=== PATIENT | female | born 1970 | race Caucasian/White ===

== ENCOUNTER 2016-08-12 14:24 | Emergency (ER) | payer MEDICARE, BC ==
[~2016-08-12] VITALS: Ht 167.6 cm; Wt 100.0 kg
[2016-08-12 14:24] VITALS: Ht 167.6 cm; Wt 100.0 kg
--- OUTSIDE RECORDS SUMMARY | 2016-08-12 14:28 | XMS REPORT | Referral Summary ---
Author Organization Unknown Address Unknown Phone Unavailable Care Team Providers Care Military Professional Name Role Phone Kimo Contreras Primary Care Physician [phone] Encounter VC Date(s): 08/02/14 - 08/02/14 [facility] [address] [place] [address] Final: Migraine, unspecified, without mention of intractable migraine, without mention of status migrainosus Discharge Disposition: Left Against Medical Advice Attending Physician: Yo Ulloa MD Admitting Physician: Yo Ulloa MD Vital Signs Most recent to 1 oldest [Reference Range]: Temperature Oral 37.2 degC [35.8-37.3 degC] (08/02/14 12:55 PM) Peripheral Pulse 96 bpm Rate [60-100 bpm] (08/02/14 12:55 PM) Respiratory Rate 16 br/min [14-20 br/min] (08/02/14 12:55 PM) Blood Pressure 125/83 mmHg [90-140/60-90 mmHg] (08/02/14 12:55 PM) Most recent to 1 oldest [Reference Range]: SpO2 100 % (08/02/14 12:55 PM) Problem List Condition Effective Dates Status Health Status Informant Acute Active pain(Confirmed) Depression(Confirmed Active patient ) Hypothyroid(Confirme Active patient d) Ineffective coping Active (individual)(Confirm ed)1 Migraine(Confirmed) Active patient Psychosis(Confirmed) Active patient Schizoaffective Active disorder, bipolar type without good prognostic features(Confirmed) Tremors(Confirmed)2 Resolved patient 1Problem added automatically by system based on initiation of Ineffective Coping Plan of Care 2right arm r/t medication Allergies, Adverse Reactions, Alerts Substance Reaction Severity Status anabolic steroids1 Active Benadryl Anxiety Active Demerol HCl Anaphylaxis Active egg-containing compound2 unknown Severe Active meperidine "STOPPED BREATHHING" Active Anaphylaxis Milk Products3 Unknown Active 1patient states that she vomits when she takes steroids 2pt has PKU 3pku Medications [place] Thyroid 60 mg, Oral, BID, 0 Refill(s) Start Date: 11/23/13 Status: Ordered cholecalciferol 1000 intl units oral tablet 2 tabs, Oral, Daily, 0 Refill(s) Start Date: 07/20/14 Status: Ordered Depakote ER 500 mg oral tablet, extended release 3 tabs, Oral, Bedtime (once a day), 0 Refill(s) Start Date: 07/20/14 Status: Ordered Diflucan 200 mg, Oral, Daily, 0 Refill(s) Start Date: 07/14/14 Status: Ordered FLUoxetine 20 mg oral capsule 2 caps, Oral, Daily, # 60 caps, 0 Refill(s), Indication: depression/anxiety Start Date: 07/20/14 Status: Ordered Imitrex See Instructions, as needed for migraine headache, 100 mg at onset of headache. May repeat 1 time if needed., 0 Refill(s) Special Instructions: 100 mg at onset of headache. May repeat 1 time if needed. Start Date: 12/30/13 Status: Ordered Kuvan 100 mg oral tablet, dispersible 19 tabs, Oral, Daily, 0 Refill(s) Start Date: 07/14/14 Status: Ordered orphenadrine extended release See Instructions, Migraine Headache, 100 mg at onset of headache. May repeat 1 time if needed, 0 Refill(s) Special Instructions: 100 mg at onset of headache. May repeat 1 time if needed Start Date: 07/14/14 Status: Ordered traZODone 150 mg, Oral, Bedtime (once a day), 0 Refill(s) Start Date: 07/14/14 Status: Ordered ZyPREXA 5 mg oral tablet 1 tabs, Oral, Bedtime (once a day), # 30 tabs, 0 Refill(s), Indication: mood stabilizer Start Date: 07/20/14 Status: Ordered Results No data available for this section Immunizations No data available for this section Procedures Procedure Date Related Diagnosis Body Site Appendectomy Back care Carpal tunnel release Cholecystectomy Hysterectomy Thyroidectomy Tonsillectomy Social History Social History Type Response Smoking Status Never smoker Assessment and Plan No data available for this section
--- OUTSIDE RECORDS SUMMARY | 2016-08-12 14:28 | XMS REPORT ---
Author Author Ceasar Hobson [facility] Address [address] [place] [address] Care Team Providers Care Acetylene Burner Name Role Phone Ceasar Hobson Unavailable [phone] PROBLEMS Type Condition ICD9-CM Code QYS71-OD Code Onset Dates Condition Status SNOMED Code Problem PKU (phenylketonuria) E70.0 Active 7698200 Problem Phenylketonuria (PKU) 270.1 Active Assessment PKU (phenylketonuria) E70.0 Jun, Active 0560267 ALLERGIES Unknown Allergies SOCIAL HISTORY No smoking Hx information available PLAN OF CARE VITAL SIGNS MEDICATIONS Medication Instructions Dosage Frequency Start Date End Date Duration Status PhenylAde Essential Drink Mix - Orally daily - taken throughout the day 240 g daily - all flavors Jun, 1 month Active Low protein food n/a orally daily 800 mg PHE or 16 g protein per day 24h 1 month Active RESULTS No Results PROCEDURES No Known procedures IMMUNIZATIONS No Known Immunizations
--- OUTSIDE RECORDS SUMMARY | 2016-08-12 14:28 | XMS REPORT ---
Author Author GENERATED, SYSTEM Organization Unknown Address Unknown Phone Unavailable Care Team Providers Care Wash And Greaser Name Role Phone UNASSIGNED DOCTOR , DOCTOR PP [phone] Reason For Visit Reason for Visit from 07/15/2016 7:58 AM:* Pt Stated Reason for Adm : "severe depression, medication not working, crying, SI" Reason for Visit from 07/14/2016 11:39 AM:* Pt Stated Reason for Adm : "severe depression, medication not working, crying, SI" Chief Complaint MDD Social History Social History from 07/17/2016 10:53 AM:* Tobacco Use? : Never Smoker Social History from 07/15/2016 7:58 AM:* Tobacco Use? : Never Smoker Social History from 07/14/2016 11:39 AM:* Tobacco Use? : Never Smoker Functional Status Functional Status from 07/17/2016 9:54 AM:* LOC : Alert * Oriented To : Person,Place,Time,Event * Weight Bearing Status : Full * Assist Level : Independent * # Assists : Independent Functional Status from 07/16/2016 7:35 PM:* LOC : Alert * Oriented To : Person,Place,Time,Event * Weight Bearing Status : Full * Assist Level : Independent * # Assists : Independent Functional Status from 07/16/2016 7:14 AM:* LOC : Alert * Oriented To : Person,Place,Time,Event * Weight Bearing Status : Full * Assist Level : Independent * # Assists : Independent Functional Status from 07/15/2016 7:45 PM:* LOC : Alert * Oriented To : Person,Place,Time,Event * Weight Bearing Status : Full * Assist Level : Independent * # Assists : Independent Functional Status from 07/15/2016 10:26 AM:* LOC : Alert * Oriented To : Person,Place,Time,Event * Weight Bearing Status : Full * Assist Level : Independent * # Assists : Independent Functional Status from 07/14/2016 8:45 PM:* LOC : Alert * Oriented To : Person,Place,Time,Event * Weight Bearing Status : Full * Assist Level : Independent * # Assists : Independent Functional Status from 07/14/2016 11:39 AM:* LOC : Alert * Oriented To : Person,Place,Time,Event * Weight Bearing Status : Full * Assist Level : Independent * # Assists : Independent Vital Signs Hospital Vital Signs from 07/17/2016 4:03 AM:* Weight : 105.9/ kg * Height : 5/6 ft,in * Temperature : 97.1 F * Pulse : 109 * Respirations : 20 * BP : 121/95 Hospital Vital Signs from 07/16/2016 6:16 AM:* Height : 5/6 ft,in * Temperature : 98.4 F * Pulse : 115 * Respirations : 18 * BP : 115/86 Hospital Vital Signs from 07/15/2016 2:44 PM:* Height : 5/6 ft,in Hospital Vital Signs from 07/15/2016 6:07 AM:* Height : 5/6 ft,in * Temperature : 99.2 F * Pulse : 107 * Respirations : 107 * BP : 126/74 Hospital Vital Signs from 07/14/2016 10:40 PM:* Height : 5/6 ft,in * Temperature : 98 F * Pulse : 104 * Respirations : 18 * BP : 116/73 Hospital Vital Signs from 07/14/2016 7:43 PM:* Height : 5/6 ft,in * Temperature : 99.6 F * Pulse : 107 * Respirations : 18 * BP : 154/88 Hospital Vital Signs from 07/14/2016 11:39 AM:* Weight : 104.8/ kg * Height : 5/6 ft,in Hospital Vital Signs from 07/14/2016 10:28 AM:* Weight : 104.8/ kg * Height : 5/6 ft,in * Temperature : 98.5 F * Pulse : 107 * Respirations : 18 * BP : 142/94 Results Chemistry from 07/15/2016 6:40 AMGLUCOSE (FASTING) 103 MG/DL H (65-99 MG/DL) Problems Encounter Diagnosis * Mood Disorder Status:Active. Encounters Encounter Diagnosis * Mood Disorder Status:Active. Plan of Care Follow-up Appointments from 07/17/2016 10:53 AM:* #1 Office appointment: : Reva Urbano * #1 Date/Time : 07/17/2016 4:00 PM * Address # 1 : [phone] * #2 Office appointment: : Dr. Calvin Gonzales [facility] * #2 Date/Time : 08/29/2016 1:40 PM * Address # 2 : [phone] Procedures No relevant procedures performed. Immunizations No immunizations administered or ordered. Hospital Course Hospital Discharge Instructions How to care for yourself at home from 07/17/2016 10:53 AM:* Discharge Activity : Activity as tolerated * Discharge Diet : As before hospitalization * Call your doctor if: : Fever over 101 F or severe chills,Chest pain or other unexplained symptoms,Tingling or numbness develops,A sudden increase or decrease in weight,You have persistent or worsening symptoms Allergies, Adverse Reactions, Alerts * Imitrex causes anxiety. * steroids causes Nausea. * Benadryl causes restless legs. * Demerol causes Severe Shortness of Breath. * No Latex Allergy. * No IV Contrast Allergy. * No Known Food Allergies. Medication It is the responsibility of the patient or patient membership sales representative to confirm the list of medications with either the patient's personal care provider or the patient's follow-up care provider to ensure the patient has an appropriate list of medications to take at home. Discharge medications New medications* hydrOXYzine pamoate (Vistaril) 50 mg Capsule, Ordered By: CELESTINO ALLEN, PAC Directions: 1 capsule oral four times daily PRN ANXIETY * venlafaxine (Effexor XR) 75 mg capsule,extended release 24hr, Ordered By: CELESTINO ALLEN, PAC Directions: 1 capsule oral daily for depression Continued medications* oxyCODONE-acetaminophen (Percocet) 7.5 mg-325 mg Tablet, Ordered By: CELESTINO ALLEN, PAC Directions: 1 tablet oral every four hours PRN pain Changed medications* clonazePAM 0.5 mg Tablet, Ordered By: CELESTINO ALLEN, PAC Directions: 1 tablet oral daily at bedtime for insomnia * cholecalciferol (vitamin D3) 1,000 unit Tablet, Ordered By: CELESTINO ALLEN , PAC Directions: 1 tablet oral daily at bedtime for nutrition * gabapentin 400 mg Capsule, Ordered By: CELESTINO ALLEN, PAC Directions: 1 capsule oral daily at bedtime for pain * lurasidone (Latuda) 80 mg Tablet, Ordered By: DARLING RAMIREZ Directions: 1 tablet oral daily with dinner for mood stabilization * sapropterin 500 mg Powder in Packet, Ordered By: DARLING RAMIREZ Directions: 4 packet oral daily for PKU * thyroid (pork) ([place] Thyroid) 60 mg Tablet, Ordered By: DARLING RAMIREZ Directions: 1 tablet oral twice a day before breakfast and at bedtime for hypothyroidism Stopped medications* amitriptyline 25 mg Tablet Directions: 1 tablet oral daily at bedtime * DULoxetine 60 mg capsule,delayed release(DR/EC) Directions: 2 capsule oral daily * hydrOXYzine HCl 25 mg Tablet Directions: 1 tablet oral three times a day PRN anxiety
--- OUTSIDE RECORDS SUMMARY | 2016-08-12 14:29 | XMS REPORT | Referral Summary ---
Author Author [facility] Organization [facility] Address Unknown Phone Unavailable Care Team Providers Care Historical Guide Name Role Phone ContrerasKimo Primary Care Physician [phone] Encounter VC Date(s): 03/10/15 - 03/10/15 [facility] [address] [place] [address]- Discharge Diagnosis: Bilateral sensorineural hearing loss Discharge Disposition: 01-Home or Self Care Attending Physician: Julio C Samuels MD Admitting Physician: Julio C Samuels MD Vital Signs No data available for this section Problem List Condition Effective Dates Status Health Status Informant Acute Active pain(Confirmed) [place] III diagnosis: Active migraines, PKU(Confirmed) [place] IV diagnosis: Active problems with chronic illness, primary support(Confirmed) [place] V diagnosis: Active GAF 20(Confirmed) [place] II diagnosis Active deferred(Confirmed) Depression(Confirmed Active patient ) Hypothyroid(Confirme Active patient d) Ineffective coping Resolved (individual)(Confirm ed)1 Migraine(Confirmed) Active patient PKU Active patient (phenylketonuria)(Co nfirmed) Psychosis(Confirmed) Active patient [place] I: Active Schizoaffective disorder, bipolar type without good prognostic features(Confirmed) Tremors(Confirmed)2 Resolved patient 1Problem added automatically by system based on initiation of Ineffective Coping Plan of Care 2right arm r/t medication Allergies, Adverse Reactions, Alerts Substance Reaction Severity Status anabolic steroids1 Vomiting Severe Active Benadryl Anxiety Severe Active Demerol HCl Anaphylaxis Severe Active egg-containing compound2 unknown Severe Active meperidine "STOPPED BREATHHING" Severe Active Anaphylaxis Milk Products3 Unknown Active 1patient states that she vomits when she takes steroids 2pt has PKU 3pku Medications [place] Thyroid 60 mg, Oral, BID, 0 Refill(s) Start Date: 11/23/13 Status: Ordered Bystolic 5 mg, Oral, Daily, 0 Refill(s) Start Date: 10/17/14 Status: Ordered cholecalciferol 1000 intl units oral tablet 1,000 Intl_Units 1 tabs, Oral, Bedtime (once a day), 0 Refill(s) Start Date: 07/20/14 Status: Ordered FLUoxetine 40 mg, Oral, Daily, 0 Refill(s) Start Date: 10/18/14 Status: Ordered hydrochlorothiazide 25 mg, Oral, Daily, Swelling, 0 Refill(s) Start Date: 12/21/14 Status: Ordered HYDROcodone-acetaminophen 7.5 mg-325 mg oral tablet 1 tabs, Oral, q4hr, as needed for pain, q4-6hr, 0 Refill(s) Start Date: 10/17/14 Status: Ordered Kuvan 100 mg oral tablet, dispersible 1,900 mg 19 tabs, Oral, Daily, 0 Refill(s) Start Date: 12/21/14 Status: Ordered Migranal 4 mg/mL nasal spray 1 sprays, Nasal, q15min, as needed for headache, may repeat once in 15 minutes in each nostril, # 1 mL, 0 Refill(s) Start Date: 10/17/14 Status: Ordered multivitamin 1 tabs, Oral, Daily, 0 Refill(s) Start Date: 12/21/14 Status: Ordered orphenadrine 30 mg/mL injectable solution 60 mg, IntraMuscular, 3x/Wk, Migraine Headache, 0 Refill(s) Start Date: 10/18/14 Status: Ordered promethazine 25 mg oral tablet 25 mg 1 tabs, Oral, Daily, Nausea or Vomiting, 0 Refill(s) Start Date: 10/21/14 Status: Ordered QUEtiapine 25 mg oral tablet 25 mg 1 tabs, Oral, BID, # 60 tabs, 0 Refill(s), Indication: mood Start Date: 12/25/14 Status: Ordered SEROquel 100 mg oral tablet 100 mg 1 tabs, Oral, Bedtime (once a day), # 30 tabs, 0 Refill(s), Indication: mood Start Date: 12/25/14 Status: Ordered topiramate 50 mg oral tablet 50 mg 1 tabs, Oral, BID, 0 Refill(s) Start Date: 12/21/14 Status: Ordered traZODone 100 mg oral tablet 100 mg 1 tabs, Oral, Bedtime (once a day), 0 Refill(s) Start Date: 12/21/14 Status: Ordered traZODone 50 mg oral tablet 100 mg 2 tabs, Oral, Bedtime (once a day), Insomnia, # 60 tabs, 0 Refill(s), Indication: sleep Start Date: 12/25/14 Status: Ordered trihexyphenidyl 2 mg oral tablet 2 mg 1 tabs, Oral, BID, 0 Refill(s) Start Date: 12/21/14 Status: Ordered Results No data available for this section Immunizations No data available for this section Procedures Procedure Date Related Diagnosis Body Site Electroconvulsive Therapy ECT1 11/02/14 Examination Under Anesthesia2 11/02/14 Electroconvulsive Therapy ECT3 10/31/14 Examination Under Anesthesia4 10/31/14 Electroconvulsive Therapy ECT5 10/28/14 Examination Under Anesthesia6 10/28/14 Electroconvulsive Therapy ECT7 10/26/14 Examination Under Anesthesia8 10/26/14 Electroconvulsive Therapy ECT9 10/24/14 Electroconvulsive Therapy ECT10 10/21/14 Examination Under [id number] 10/21/14 Electroconvulsive Therapy ECT12 10/19/14 Examination Under [id number] 10/19/14 Appendectomy Back care Carpal tunnel release Cholecystectomy Hysterectomy Thyroidectomy Tonsillectomy 1auto-populated from documented surgical case 2auto-populated from documented surgical case 3auto-populated from documented surgical case 4auto-populated from documented surgical case 5auto-populated from documented surgical case 6auto-populated from documented surgical case 7auto-populated from documented surgical case 8auto-populated from documented surgical case 9auto-populated from documented surgical case 10auto-populated from documented surgical case 11auto-populated from documented surgical case 12auto-populated from documented surgical case 13auto-populated from documented surgical case Social History Social History Type Response Smoking Status Never smoker Assessment and Plan No data available for this section
--- OUTSIDE RECORDS SUMMARY | 2016-08-12 14:29 | XMS REPORT ---
Author Author Ceasar Hobson [facility] eClinical[employer] Address Unknown Phone Unavailable Care Team Providers Care Professor Of Philosophy Name Role Phone Ceasar Hobson Unavailable Allergies No Known Allergies Problems Problem Type Condition Code Onset Dates Condition Status Problem Phenylketonuria (PKU) 270.1 Active Problem PKU (phenylketonuria) E70.0 Active Medications No Known Medications Results No Known Results Summary Purpose eClinicalWorks Submission
--- OUTSIDE RECORDS SUMMARY | 2016-08-12 14:29 | XMS REPORT ---
Author Author [facility] Unknown Address Unknown Phone Unavailable Allergies, Adverse Reactions, Alerts * Meperidine causes Severe Anaphylaxis. * Latex Allergy has not been assessed. * IV Contrast Allergy has not been assessed. * No Known Food Allergies. Problems * Anxiety* Status:Inactive. * Depression* Status:Active. * Difficulty Sleeping* Status:Inactive. * Hallucinations* Status:Active. Procedures No relevant procedures performed. Medication It is the responsibility of the patient or patient public relations representative to confirm the list of medications with either the patient's personal care provider or the patient's follow-up care provider to ensure the patient has an appropriate list of medications to take at home. Discharge medications* citalopram (CeleXA) 40 mg Tablet, Ordered By: Audra Owens Directions: 1 tablet oral daily * topiramate (ToPAMax) 100 mg Tablet, Ordered By: Audra Owens Directions: 1 tablet oral twice a day * Discharge Instruction: 1 Regular Diet 2 Activity up as tolerated 3 Follow up with primary care physcian 1 week after discharge from [facility]. Stopped medications* lithium carbonate 150 mg Capsule Directions: 1 capsule oral twice a day * thyroid (pork) ([place] Thyroid) 60 mg Tablet Directions: 1 tablet oral twice a day * ziprasidone HCl (Geodon) 40 mg Capsule Directions: 1 capsule oral daily with dinner Additional Instructions: TAKE WITH FULL MEAL OR AT LEAST 500 CALORIES * traZODone 100 mg Tablet Directions: 1 tablet oral daily at bedtime Results LAB--CHEMISTRY from 02/03/2013 3:39 AMFree T4 0.7 ng/dL (0.6-1.1 ng/dL) TSH (with reflex Free T4) 0.07 uIU/mL L (0.35-5.50 uIU/mL) Sodium 140 mEq/L (136-144 mEq/L) Potassium 3.8 mEq/L (3.6-5.1 mEq/L) Glucose 91 mg/dL (70-100 mg/dL) eGFR >60 (>60- ) Creatinine 0.62 mg/dL (0.44-1.03 mg/dL) CO2 22 mEq/L (22-32 mEq/L) Chloride 111 mEq/L H (99-109 mEq/L) Calcium 8.1 mg/dL L (8.6-10.0 mg/dL) BUN 5 mg/dL (4-20 mg/dL) Anion Gap 7 (3-20 ) LAB--HEMATOLOGY from 02/03/2013 3:39 AMNeutrophils 55 % (51-75 %) Monocytes 9 % (4-11 %) Lymphocytes 34 % (20-46 %) Immature Granulocytes 0.1 % (0.0-1.0 %) Eosinophils 1 % (0-4 %) Basophils 0 % (0-2 %) WBC 10.0 K/uL (4.8-10.8 K/uL) RDW 12.4 % (11.5-14.5 %) RBC 4.04 M/uL (4.00-5.20 M/uL) Platelet Count 284 K/uL (150-400 K/uL) MPV 10.6 fL (9.4-12.4 fL) MCV 93.8 fL (82.0-99.0 fL) MCHC 33.2 g/dL (32.0-36.0 g/dL) MCH 31.2 pg (27.0-32.0 pg) HGB 12.6 g/dl (12.0-16.0 g/dl) HCT 37.9 % (37.0-47.0 %) Absolute Neutrophils 5.51 THOUS (1.90-7.00 THOUS) Absolute Monocytes 0.94 THOUS (0.30-1.00 THOUS) Absolute Lymphocytes 3.38 THOUS H (0.80-3.30 THOUS) Absolute Eosinophils 0.11 THOUS (0.00-0.50 THOUS) Absolute Basophils 0.04 THOUS (0.00-0.20 THOUS)
--- OUTSIDE RECORDS SUMMARY | 2016-08-12 14:29 | XMS REPORT | Referral Summary ---
Author Author [facility] Organization [facility] Address Unknown Phone Unavailable Care Team Providers Care Guest Relations Coordinator Name Role Phone Kimo Contreras Primary Care Physician [phone] Encounter VC Date(s): 02/04/16 - 02/04/16 [facility] [address] [place] [address] [phone] Discharge Diagnosis: Migraine Discharge Disposition: 01-Home or Self Care Attending Physician: Brian Welch MD Admitting Physician: Brian Welch MD Vital Signs Most recent to 1 oldest [Reference Range]: Temperature Oral 36.5 degC [35.8-37.3 degC] (02/04/16 3:36 PM) Peripheral Pulse 92 bpm Rate [60-100 bpm] (02/04/16 3:36 PM) Heart Rate Monitored 89 bpm [60-100 bpm] (02/04/16 8:30 PM) Respiratory Rate 14 br/min [14-20 br/min] (02/04/16 8:30 PM) Blood Pressure 117/73 mmHg [90-140/60-90 mmHg] (02/04/16 8:30 PM) Mean Arterial 88 mmHg Pressure, Cuff (02/04/16 8:30 PM) SpO2 97 % (02/04/16 8:30 PM) Problem List Condition Effective Dates Status Health Status Informant Acute Active pain(Confirmed) [place] III diagnosis: Active migraines, PKU(Confirmed) [place] IV diagnosis: Active problems with chronic illness, primary support(Confirmed) [place] V diagnosis: Active GAF 20(Confirmed) [place] II diagnosis Active deferred(Confirmed) Depression(Confirmed Active patient ) Hypothyroid(Confirme Active patient d) Ineffective coping Resolved (individual)(Confirm ed)1 Migraine(Confirmed) Active patient PKU Active patient (phenylketonuria)(Co nfirmed) Psychosis(Confirmed) Active patient [place] I: Active Schizoaffective disorder, bipolar type without [...] takes steroids 2pt has PKU 3pku Medications [place] Thyroid 60 mg, Oral, BID, 0 Refill(s) [...] 10/24/14 Electroconvulsive Therapy ECT10 10/21/14 Examination Under [id number] 10/21/14 Electroconvulsive Therapy ECT12 10/19/14 Examination Under [id number] 10/19/14 Appendectomy Back care Carpal tunnel release [...]
--- OUTSIDE RECORDS SUMMARY | 2016-08-12 14:29 | XMS REPORT | Referral Summary ---
Author Organization Unknown Address Unknown Phone Unavailable Care Team Providers Care Hand Folder Name Role Phone Kimo Contreras Primary Care Physician [phone] Encounter [facility] Date(s): 06/06/14 - 06/06/14 [facility] [address] [place] [address] Discharge Diagnosis: Chronic pain Discharge Diagnosis: Chronic pain Discharge Diagnosis: Headache Discharge Diagnosis: Migraine headache Discharge Disposition: Home or Self Care Attending Physician: Haroldo Oliveros DO Admitting Physician: Haroldo Oliveros DO Vital Signs Most recent to 1 oldest [Reference Range]: Temperature Oral 36.7 degC [35.8-37.3 degC] (06/06/14 6:06 PM) Peripheral Pulse 85 bpm Rate [60-100 bpm] (06/06/14 9:22 PM) Respiratory Rate 20 br/min [14-20 br/min] (06/06/14 9:22 PM) Blood Pressure 130/65 mmHg [90-140/60-90 mmHg] (06/06/14 9:22 PM) Mean Arterial 77 mmHg Pressure, Cuff (06/06/14 9:22 PM) Most recent to 1 oldest [Reference Range]: SpO2 97 % (06/06/14 9:22 PM) Problem List Condition Effective Dates Status Health Status Informant Depression(Confirmed Active patient ) Hypothyroid(Confirme Active patient d) Migraine(Confirmed) Active patient Psychosis(Confirmed) Active patient Tremors(Confirmed)1 Resolved patient 1right arm r/t medication Allergies, Adverse Reactions, Alerts Substance Reaction Severity Status anabolic steroids1 Active Benadryl Anxiety Active Demerol HCl Anaphylaxis Active meperidine "STOPPED BREATHHING" Active Anaphylaxis 1patient states that she vomits when she takes steroids Medications [place] Thyroid 60 mg, Oral, BID, 0 Refill(s) Start Date: 11/23/13 Status: Ordered [place] Thyroid 60 mg oral tablet 1 tabs, Oral, BID, 0 Refill(s) Start Date: 12/02/13 Status: Ordered CeleXA 40 mg oral tablet 1 tabs, Oral, Daily, 0 Refill(s) Start Date: 12/02/13 Status: Ordered Depakote Oral, TID, 0 Refill(s) Start Date: 06/06/14 Status: Ordered Imitrex Daily, 0 Refill(s) Start Date: 12/30/13 Status: Ordered Kuvan mg/kg, Oral, Daily, 0 Refill(s) Start Date: 06/06/14 Status: Ordered Latuda Oral, Daily, 0 Refill(s) Start Date: 06/06/14 Status: Ordered propranolol 0 Refill(s) Start Date: 12/22/13 Status: Ordered Topamax Oral, BID, 0 Refill(s) Start Date: 12/22/13 Status: Ordered traZODone 50 mg oral tablet 1 tabs, Oral, Bedtime (once a day), Insomnia, 0 Refill(s) Start Date: 12/02/13 Status: Ordered Results No data available for this section Immunizations No data available for this section Procedures Procedure Date Related Diagnosis Body Site Appendectomy Back care Carpal tunnel release Cholecystectomy Hysterectomy Thyroidectomy Tonsillectomy Social History Social History Type Response Smoking Status Never smoker Assessment and Plan No data available for this section
--- OUTSIDE RECORDS SUMMARY | 2016-08-12 14:30 | XMS REPORT | Referral Summary ---
Author Author [facility] Organization [facility] Address Unknown Phone Unavailable Care Team Providers Care Filter Press Pumper Name Role Phone ContrerasKimo Primary Care Physician [phone] Encounter VC Date(s): 03/10/15 - 03/10/15 [facility] [address] [place] [address]- Discharge Diagnosis: Bilateral sensorineural hearing loss Discharge Disposition: 01-Home or Self Care Attending Physician: Julio C Samuels MD Admitting Physician: Julio C Samuels MD Vital Signs No data available for this section Problem List Condition Effective Dates Status Health Status Informant Acute Active pain(Confirmed) Hoffman III diagnosis: Active migraines, PKU(Confirmed) Hoffman IV diagnosis: Active problems with chronic illness, primary support(Confirmed) Hoffman V diagnosis: Active GAF 20(Confirmed) Hoffman II diagnosis Active deferred(Confirmed) Depression(Confirmed Active patient ) Hypothyroid(Confirme Active patient d) Ineffective coping Resolved (individual)(Confirm ed)1 Migraine(Confirmed) Active patient PKU Active patient (phenylketonuria)(Co nfirmed) Psychosis(Confirmed) Active patient Hoffman I: Active Schizoaffective disorder, bipolar type without [...] takes steroids 2pt has PKU 3pku Medications [place] Thyroid 60 mg, Oral, BID, 0 Refill(s) [...] 10/24/14 Electroconvulsive Therapy ECT10 10/21/14 Examination Under [id number] 10/21/14 Electroconvulsive Therapy ECT12 10/19/14 Examination Under [id number] 10/19/14 Appendectomy Back care Carpal tunnel release [...]
--- OUTSIDE RECORDS SUMMARY | 2016-08-12 14:30 | XMS REPORT | Referral Summary ---
Author Organization Unknown Address Unknown Phone Unavailable Care Team Providers Care Director Of Healthcare Systems Name Role Phone Kimo Contreras Primary Care Physician [phone] Encounter [facility] [id number] Date(s): 09/07/14 - 09/08/14 [facility] [address] [place] [address] [phone] Discharge Diagnosis: Headache Final: HEADACHE Discharge Disposition: Home or Self Care Attending Physician: Isauro Wheatley JR, MD Admitting Physician: Isauro Wheatley JR, MD Vital Signs Most recent to 1 oldest [Reference Range]: Temperature Oral 36.8 degC [35.8-37.3 degC] (09/07/14 8:23 PM) Peripheral Pulse 72 bpm Rate [60-100 bpm] (09/08/14 3:05 AM) Heart Rate Monitored 72 bpm [60-100 bpm] (09/08/14 3:00 AM) Respiratory Rate 20 br/min [14-20 br/min] (09/08/14 3:05 AM) Blood Pressure 123/81 mmHg [90-140/60-90 mmHg] (09/08/14 3:05 AM) Mean Arterial 91 mmHg Pressure, Cuff (09/08/14 3:00 AM) Most recent to 1 oldest [Reference Range]: SpO2 99 % (09/08/14 3:05 AM) Problem List Condition Effective Dates Status Health [...] takes steroids 2pt has PKU 3pku Medications [place] Thyroid 60 mg, Oral, BID, 0 Refill(s) [...] stabilizer Start Date: 07/20/14 Status: Ordered Results Chemistry Most recent to 1 oldest [Reference Range]: U Beta hCG Ql Neg (09/08/14 12:31 AM) Immunizations No data available for this section Procedures Procedure Date Related Diagnosis Body Site Appendectomy Back care Carpal tunnel release Cholecystectomy Hysterectomy Thyroidectomy Tonsillectomy Social History Social History Type Response Smoking Status Never smoker Assessment and Plan No data available for this section
--- OUTSIDE RECORDS SUMMARY | 2016-08-12 14:30 | XMS REPORT | Continuity of Care Document ---
Author Author [facility] Organization [facility] Address Unknown Phone Unavailable Allergies Active Description Code Type Severity Reaction Onset Reported/Identified Relationship to Patient Clinical Status Yes BENADRYL [id number] Drug Allergy N/A N/A Yes DEMEROL [id number] Drug Allergy N/A N/A Yes SHELLFISH Drug Allergy N/A N/A Yes STEROIDS Drug Allergy N/A N/A Yes Meperidine Drug Allergy Severe Anaphylaxis 09/27/2010 Yes EGGS EGGS Drug Allergy Unknown HAS PKU 07/12/2012 Yes EGGS EGGS Drug Allergy Unknown HAS PKU 07/12/2012 Yes No Allergy Information Drug Allergy N/A N/A 01/04/2013 Yes No Known Food Allergies Food Allergy N/A N/A 04/26/2013 Yes STEROIDS STEROIDS Drug Allergy Mild PER PT/ NAUSEA 01/04/2014 Yes STEROIDS STEROIDS Drug Allergy Mild PER PT/ NAUSEA 01/04/2014 Yes Steroidal Neuromuscular Blockers Steroidal Neuromuscular Blockers Drug Allergy Unknown vomiting 03/01/2015 Yes Steroidal Neuromuscular Blockers Steroidal Neuromuscular Blockers Drug Allergy Unknown vomiting 04/23/2015 Yes sumatriptan sumatriptan Drug Allergy Moderate pannic attach 06/28/2016 Yes diphenhydramine diphenhydramine Drug Allergy Unknown PER PT / RESTLESS 06/28/2016 Yes Egg Derived Egg Derived Drug Allergy Unknown PKU 06/28/2016 Yes meperidine HCl meperidine HCl Drug Allergy Unknown STOPS BREATHING AND DRY HEAVES 06/28/2016 Yes Neuromuscular Blockers, Steroidal Neuromuscular Blockers, Steroidal Drug Allergy Unknown vomiting 06/28/2016 Yes shellfish derived shellfish derived Drug Allergy Unknown HAS PKU AND CAN NOT EAT IT 06/28/2016 Yes sumatriptan sumatriptan Drug Allergy Moderate pannic attach 06/30/2016 Yes diphenhydramine diphenhydramine Drug Allergy Unknown PER PT / RESTLESS 06/30/2016 Yes Egg Derived Egg Derived Drug Allergy Unknown PKU 06/30/2016 Yes meperidine HCl meperidine HCl Drug Allergy Unknown STOPS BREATHING AND DRY HEAVES 06/30/2016 Yes Neuromuscular Blockers, Steroidal Neuromuscular Blockers, Steroidal Drug Allergy Unknown vomiting 06/30/2016 Yes shellfish derived shellfish derived Drug Allergy Unknown HAS PKU AND CAN NOT EAT IT 06/30/2016 Medications Problems Date Dx Coded Attending Type Code Diagnosis Diagnosed By 02/02/2013 Emra Valentine DO Final 244.9 HYPOTHYROIDISM NOS 02/02/2013 Erma Valentine DO Final 295.70 SCHIZOAFF DISORDER NOS 02/02/2013 Erma Valentine DO Final 296.34 RECURRENT MDD-SEV PSYCH 02/02/2013 Erma Valentine DO Final 309.81 POSTTRAUMATIC STRESS DIS 02/02/2013 Erma Valentine DO Final 975.2 POIS-SKEL MUSCLE RELAX 02/02/2013 Erma Valentine DO External E849.0 HOME ACCIDENTS 02/02/2013 Erma Valentine DO External E950.4 SUICIDE-DRUG/MED NEC 02/02/2013 Erma Valentine DO Final V62.84 SUICIDE IDEATION 05/24/2013 Yo Ulloa MD Admitting 346.90 MIGRAINE NOS W/O SM 05/24/2013 Yo Ulloa MD Final 784.0 HEADACHE 09/03/2013 Rosalio Castro MD Final 244.9 HYPOTHYROIDISM NOS 09/03/2013 Rosalio Castro MD Final 346.90 MIGRAINE NOS W/O SM 09/03/2013 Rosalio Castro MD Admitting 784.0 HEADACHE 09/11/2015 F F29 Unspecified psychosis not due to a substance or known physiological condition Severo Valdivia 09/12/2015 F F29 Unspecified psychosis not due to a substance or known physiological condition Jake Cedeño 12/21/2015 F F32.9 Major depressive disorder, single episode, unspecified Petit, Benjamen 12/21/2015 F F60.3 Borderline personality disorder 12/21/2015 F F60.3 Borderline personality disorder 12/22/2015 F F32.9 Major depressive disorder, single episode, unspecified 12/22/2015 F F60.3 Borderline personality disorder Petit, Benjamen 12/22/2015 F F60.3 Borderline personality disorder Josephine Hernandez 12/22/2015 F F32.9 Major depressive disorder, single episode, unspecified Siedler, Josephine Kasia 12/22/2015 F F60.3 Borderline personality disorder Siedler, Josephine Kasia 12/22/2015 F F32.9 Major depressive disorder, single episode, unspecified Siedler, Josephine Kasia 12/22/2015 F F60.3 Borderline personality disorder Petit, Benjamen 12/22/2015 F F60.3 Borderline personality disorder 12/22/2015 F F32.9 Major depressive disorder, single episode, unspecified Almquist-Wiseman, Kylie Magnolia 12/22/2015 F F60.3 Borderline personality disorder Almquist- Wiseman, Kylie Magnolia 12/22/2015 F F32.9 Major depressive disorder, single episode, unspecified 12/22/2015 F F60.3 Borderline personality disorder Petit, Benjamen 12/24/2015 F F32.9 Major depressive disorder, single episode, unspecified 12/24/2015 F F60.3 Borderline personality disorder Damaso, Benjamen 07/27/2016 LIBBY STATON E039 Hypothyroidism, unspecified 07/27/2016 LIBBY STATON 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, recurrent severe w/o psych features 07/27/2016 LIBBY STATON C52757 Suicidal ideations 07/27/2016 LIBBY STATON Z811 Family history of alcohol abuse and dependence 07/27/2016 LIBBY STATON Z818 Family history of other mental and behavioral disorders 07/27/2016 LIBBY STATON Z885 Allergy status to narcotic agent status Procedures Code Description Performed By Performed On H2011 Severo Valdivia W [id number] Petit, Benjamen 12/21/2015 [id number] Petit, Benjamen 12/21/2015 H2011 Haroldo Daly H2011 Haroldo Daly H2011 Siedler, Josephine Kasia 12/22/2015 H2011 Siedler, Josephine Kasia 12/22/2015 H2011 Almquist-Wiseman, Kylie Magnolia 12/22/2015 H2011 Almquist-Wiseman, Kylie Magnolia 12/22/2015 Results Test Result Range TOTAL PROTEIN - 01/05/15 00:00 TOTAL PROTEIN 6.1 gm/dL 6.4-8.2 Microbiology ALBUMIN - 01/05/15 00:00 ALBUMIN 3.6 gm/dL 3.4-5.0 PREALBUMIN - 01/05/15 00:00 PREALBUMIN 28 mg/dL 20-40 AMINO ACIDS PROF QN BLD - 01/05/15 00:00 AMINO ACID QUANT. RESULT Note Microbiology UR DRUGS OF ABUSE SCREEN - 04/23/15 13:38 UR AMPHETAMINES SCREEN NEG (<1000 ng/mL) NEGATIVE UR BARBITURATE SCREEN NEG (< 200 ng/mL) NEGATIVE DRUGS OF ABUSE SCREEN COMMENT UR OPIATES SCREEN NEG (< 300 ng/mL) NEGATIVE UR PHENCYCLIDINE (PCP) SCREEN NEG (< 25 ng/mL) NEGATIVE UR CANNABINOIDS (THC) SCREEN NEG (< 50 ng/mL) NEGATIVE UR COCAINE METABOLITE SCREEN NEG (< 300 ng/mL) NEGATIVE UR METHADONE SCREEN NEG (< 300 ng/mL) NEGATIVE UR BENZODIAZEPINE SCREEN NEG (< 200 ng/mL) NEGATIVE URINALYSIS, ROUTINE - 04/23/15 13:43 UA LEUKOCYTE ESTERASE DIPSTICK NEGATIVE NEGATIVE UA NITRITE DIPSTICK NEGATIVE NEGATIVE UA PROTEIN DIPSTICK NEGATIVE NEGATIVE UA GLUCOSE DIPSTICK NEGATIVE NEGATIVE UA KETONE DIPSTICK NEGATIVE NEGATIVE UA UROBILINOGEN DIPSTICK NORMAL NORMAL UA BILIRUBIN DIPSTICK NEGATIVE NEGATIVE UA BLOOD DIPSTICK NEGATIVE NEGATIVE UA SPECIFIC GRAVITY 1.010 1.015-1.025 UR PH 6.5 5.0-7.0 CBC W/DIFF - 04/23/15 13:44 BASOPHIL # 0.1 k/cumm 0.0-0.2 BASOPHIL % 1 % 0-1 EOSINOPHIL # 0.1 k/cumm 0.1-0.5 EOSINOPHIL % 1 % 2-4 GRANULOCYTE # 7.2 k/cumm 2.0-9.0 GRANULOCYTE % 70 % 50-75 LYMPHOCYTE # 2.2 k/cumm 1.0-4.0 LYMPHOCYTE % 21 % 20-30 MEAN CELL HGB 30.5 pg 27.0-33.0 MEAN CELL HGB CONCENTRATION 34.5 g/dL 32.0-37.0 MEAN CELL VOLUME 88.4 fl 80.0-100.0 MONOCYTE # 0.8 k/cumm 0.1-1.0 MONOCYTE % 8 % 4-6 RED BLOOD CELL 4.66 m/cumm 4.00-6.00 RED CELL DISTRIBUTION WIDTH 14.3 % 11.0- 15.6 WHITE BLOOD CELL 10.3 k/cumm 5.0-10.0 HEMOGLOBIN 14.2 gm/dL 12.0-16.0 HEMATOCRIT 41.2 % 37.0-47.0 PLATELET COUNT 368 k/cumm 150-400 METABOLIC PANEL, COMPREHN - 04/23/15 13:44 POTASSIUM 3.6 mmol/L 3.5-5.3 EST GFR (MDRD) > 60 mL/min > 59 ANION GAP 10 mmol/L 5-15 GLUCOSE 106 mg/dL 70-99 CALCIUM 9.1 mg/dL 8.5-10.1 BLOOD UREA NITROGEN 9 mg/dL 7-20 CREATININE 0.9 mg/dL 0.6-1.0 SODIUM 140 mmol/L 135-148 CHLORIDE 104 mmol/L 98-110 AST/SGOT 15 Units/L 10-37 ALT/SGPT 29 Units/L < 66 CARBON DIOXIDE 26 mmol/L 21-32 TOTAL PROTEIN 7.4 gm/dL 6.4-8.2 ALBUMIN 3.9 gm/dL 3.4-5.0 BILI TOTAL 0.6 mg/dL 0.0-1.0 ALKALINE PHOSPHATASE TOTAL 96 IU/L 45- 117 ACETAMINOPHEN (TYLENOL) - 04/23/15 13:44 ACETAMINOPHEN (TYLENOL) < 2 mcg/mL 10-30 SALICYLATE (ASPIRIN) - 04/23/15 13:44 SALICYLATE < 2.8 mg/dL 2.8-29.0 ALCOHOL (ETHANOL) SERUM - 04/23/15 13:44 ALCOHOL (ETHANOL) SERUM < 3 mg/dL < 10 UR TEST - 04/23/15 13:45 UR TEST NEGATIVE NEGATIVE URINALYSIS, ROUTINE - 09/11/15 22:25 UA LEUKOCYTE ESTERASE DIPSTICK NEGATIVE NEGATIVE UA NITRITE DIPSTICK NEGATIVE NEGATIVE UA PROTEIN DIPSTICK NEGATIVE NEGATIVE UA GLUCOSE DIPSTICK NEGATIVE NEGATIVE UA KETONE DIPSTICK TRACE NEGATIVE UA UROBILINOGEN DIPSTICK NORMAL NORMAL UA BILIRUBIN DIPSTICK NEGATIVE NEGATIVE UA BLOOD DIPSTICK NEGATIVE NEGATIVE UA SPECIFIC GRAVITY 1.010 1.015-1.025 UR PH 8.0 5.0-7.0 UR TEST - 09/11/15 22:25 UR TEST NEGATIVE NEGATIVE UR DRUGS OF ABUSE SCREEN - 04/25/16 22:25 UR AMPHETAMINES SCREEN NEG (<1000 ng/mL) NEGATIVE UR BARBITURATE SCREEN NEG (< 200 ng/mL) NEGATIVE DRUGS OF ABUSE SCREEN COMMENT UR OPIATES SCREEN NEG (< 300 ng/mL) NEGATIVE UR PHENCYCLIDINE (PCP) SCREEN NEG (< 25 ng/mL) NEGATIVE UR CANNABINOIDS (THC) SCREEN NEG (< 50 ng/mL) NEGATIVE UR COCAINE METABOLITE SCREEN NEG (< 300 ng/mL) NEGATIVE UR METHADONE SCREEN NEG (< 300 ng/mL) NEGATIVE UR BENZODIAZEPINE SCREEN NEG (< 200 ng/mL) NEGATIVE CBC W/DIFF - 09/11/15 22:35 EOSINOPHIL # 0.2 k/cumm 0.1-0.5 EOSINOPHIL % 1 % 2-4 GRANULOCYTE # 8.0 k/cumm 2.0-9.0 GRANULOCYTE % 61 % 50-75 LYMPHOCYTE # 3.9 k/cumm 1.0-4.0 LYMPHOCYTE % 30 % 20-30 MEAN CELL HGB 31.5 pg 27.0-33.0 MEAN CELL HGB CONCENTRATION 34.4 g/dL 32.0-37.0 MEAN CELL VOLUME 91.4 fl 80.0-100.0 MONOCYTE # 1.0 k/cumm 0.1-1.0 MONOCYTE % 7 % 4-6 RED BLOOD CELL 4.29 m/cumm 4.00-6.00 RED CELL DISTRIBUTION WIDTH 13.0 % 11.0- 15.6 WHITE BLOOD CELL 13.0 k/cumm 5.0-10.0 HEMOGLOBIN 13.5 gm/dL 12.0-16.0 HEMATOCRIT 39.2 % 37.0-47.0 PLATELET COUNT 322 k/cumm 150-450 METABOLIC PANEL, COMPREHN - 09/11/15 22:35 POTASSIUM 3.8 mmol/L 3.5-5.3 EST GFR (MDRD) > 60 mL/min > 59 ANION GAP 9 mmol/L 5-15 GLUCOSE 100 mg/dL 70-99 CALCIUM 8.9 mg/dL 8.5-10.1 BLOOD UREA NITROGEN 8 mg/dL 7-20 CREATININE 0.8 mg/dL 0.6-1.0 SODIUM 139 mmol/L 135-148 CHLORIDE 104 mmol/L 98-110 AST/SGOT 16 Units/L 10-37 ALT/SGPT 33 Units/L < 66 CARBON DIOXIDE 26 mmol/L 21-32 TOTAL PROTEIN 7.0 gm/dL 6.4-8.2 ALBUMIN 3.8 gm/dL 3.4-5.0 BILI TOTAL 0.5 mg/dL 0.0-1.0 ALKALINE PHOSPHATASE TOTAL 78 IU/L 45- 117 ACETAMINOPHEN (TYLENOL) - 09/11/15 22:35 ACETAMINOPHEN (TYLENOL) < 2 mcg/mL 10-30 SALICYLATE (ASPIRIN) - 09/11/15 22:35 SALICYLATE < 2.8 mg/dL 2.8-29.0 ALCOHOL (ETHANOL) SERUM - 09/11/15 22:35 ALCOHOL (ETHANOL) SERUM < 10 mg/dL < 10 URINALYSIS, ROUTINE - 04/08/16 13:40 UA LEUKOCYTE ESTERASE DIPSTICK NEGATIVE NEGATIVE UA NITRITE DIPSTICK NEGATIVE NEGATIVE UA PROTEIN DIPSTICK NEGATIVE NEGATIVE UA GLUCOSE DIPSTICK NEGATIVE NEGATIVE UA KETONE DIPSTICK NEGATIVE NEGATIVE UA UROBILINOGEN DIPSTICK NORMAL NORMAL UA BILIRUBIN DIPSTICK NEGATIVE NEGATIVE UA BLOOD DIPSTICK NEGATIVE NEGATIVE UA SPECIFIC GRAVITY 1.015 1.015-1.025 UR PH 7.0 5.0-7.0 CBC W/DIFF - 06/28/16 16:52 EOSINOPHIL # 0.2 k/cumm 0.1-0.5 EOSINOPHIL % 2 % 2-4 GRANULOCYTE # 4.3 k/cumm 2.0-9.0 GRANULOCYTE % 60 % 50-75 LYMPHOCYTE # 2.1 k/cumm 1.0-4.0 LYMPHOCYTE % 30 % 20-30 MEAN CELL HGB 31.2 pg 27.0-33.0 MEAN CELL HGB CONCENTRATION 35.2 g/dL 32.0-37.0 MEAN CELL VOLUME 88.7 fl 80.0-100.0 MONOCYTE # 0.6 k/cumm 0.1-1.0 MONOCYTE % 8 % 4-6 RED BLOOD CELL 4.23 m/cumm 4.00-6.00 RED CELL DISTRIBUTION WIDTH 12.0 % 11.0- 15.6 WHITE BLOOD CELL 7.2 k/cumm 5.0-10.0 HEMOGLOBIN 13.2 gm/dL 12.0-16.0 HEMATOCRIT 37.5 % 37.0-47.0 PLATELET COUNT 300 k/cumm 150-450 METABOLIC PANEL, COMPREHN - 06/28/16 16:52 POTASSIUM 4.2 mmol/L 3.5-5.3 EST GFR (MDRD) > 60 mL/min > 59 ANION GAP 12 mmol/L 5-15 EST CrCl (CG) > 60 mL/min > 59 GLUCOSE 128 mg/dL 70-99 CALCIUM 8.4 mg/dL 8.5-10.1 BLOOD UREA NITROGEN 5 mg/dL 7-20 CREATININE 0.8 mg/dL 0.6-1.0 SODIUM 142 mmol/L 135-148 CHLORIDE 105 mmol/L 98-110 AST/SGOT 20 Units/L 10-37 ALT/SGPT 84 Units/L < 66 CARBON DIOXIDE 25 mmol/L 21-32 TOTAL PROTEIN 6.4 gm/dL 6.4-8.2 ALBUMIN 3.2 gm/dL 3.4-5.0 BILI TOTAL 0.2 mg/dL 0.0-1.0 ALKALINE PHOSPHATASE TOTAL 102 IU/L 45- 117 TROPONIN I - 06/28/16 16:52 TROPONIN I 0.02 ng/mL < 0.07 GLUCOSE (FASTING) - 07/15/16 06:40 GLUCOSE (FASTING) 103 65-99 Encounters ACCT No. Visit Date/Time Discharge Status Pt. Type Provider Facility Loc./Unit Complaint [id number] 09/03/2013 11:23:00 2013 14:35:00 DIS Emergency Gloria ADAMS, Rosalio Hayden [facility] [id number] 05/24/2013 19:23:00 2013 21:00:00 DIS Emergency Artemio ADAMS, Yo [facility] FERM [id number] 02/02/2013 18:17:00 2012 20:00:00 DIS Inpatient Erma Valentine DO [facility] on Dat [facility] [id number] 01/04/2013 20:07:00 Document Registration
--- OUTSIDE RECORDS SUMMARY | 2016-08-12 14:30 | XMS REPORT ---
Author Author Ceasar Hobson [facility] eClinicalWorks Address Unknown Phone Unavailable Care Team Providers Care Licensed Appraiser Name Role Phone Ceasar Hobson Unavailable Allergies No Known Allergies Problems Problem Type Condition Code Onset Dates Condition Status Problem Phenylketonuria (PKU) 270.1 Active Problem PKU (phenylketonuria) E70.0 Active Medications No Known Medications Results No Known Results Summary Purpose eClinicalWorks Submission
--- OUTSIDE RECORDS SUMMARY | 2016-08-12 14:30 | XMS REPORT | Referral Summary ---
Author Author [facility] Organization [facility] Address Unknown Phone Unavailable Care Team Providers Care Head Filter Tank Tender Helper Name Role Phone Kimo Contreras Primary Care Physician [phone] Encounter [facility] [id number] Date(s): 12/19/14 - 12/19/14 [facility] [address] [place] [address] [phone] Discharge Diagnosis: Migraine headache Final: Migraine, unspecified, without mention of intractable migraine, without mention of status migrainosus Discharge Disposition: 01-Home or Self Care Attending Physician: Rosalio Castro MD Admitting Physician: Rosalio Castro MD Vital Signs Most recent to 1 oldest [Reference Range]: Temperature Oral 37.4 degC [35.8-37.3 degC] *HI* (12/19/14 12:17 PM) Peripheral Pulse 76 bpm Rate [60-100 bpm] (12/19/14 3:17 PM) Respiratory Rate 18 br/min [14-20 br/min] (12/19/14 3:17 PM) Blood Pressure 117/82 mmHg [90-140/60-90 mmHg] (12/19/14 3:17 PM) SpO2 98 % (12/19/14 3:17 PM) Problem List Condition Effective Dates Status Health Status Informant Acute Active pain(Confirmed) [place] III diagnosis: Active migraines, PKU(Confirmed) [place] IV diagnosis: Active problems with chronic illness, primary support(Confirmed) [place] V diagnosis: Active GAF 20(Confirmed) [place] II diagnosis Active deferred(Confirmed) Depression(Confirmed Active patient ) Hypothyroid(Confirme Active patient d) Ineffective coping Resolved (individual)(Confirm ed)1 Migraine(Confirmed) Active patient PKU Active patient (phenylketonuria)(Co nfirmed) Psychosis(Confirmed) Active patient [place] I: Active Schizoaffective disorder, bipolar type without [...] takes steroids 2pt has PKU 3pku Medications [place] Thyroid 60 mg, Oral, BID, 0 Refill(s) [...] 10/24/14 Electroconvulsive Therapy ECT10 10/21/14 Examination Under [id number] 10/21/14 Electroconvulsive Therapy ECT12 10/19/14 Examination Under [id number] 10/19/14 Appendectomy Back care Carpal tunnel release [...]
--- OUTSIDE RECORDS SUMMARY | 2016-08-12 14:30 | XMS REPORT | Referral Summary ---
Author Author [facility] Organization [facility] Address Unknown Phone Unavailable Care Team Providers Care Web Programmer Name Role Phone Kimo Contreras Primary Care Physician [phone] Encounter [facility] Date(s): 11/06/14 - 11/06/14 [facility] [address] [place] [place] [address] Discharge Diagnosis: Migraine Final: Migraine, unspecified, without mention of intractable migraine, without mention of status migrainosus Discharge Disposition: 01-Home or Self Care Attending Physician: Hansel Rashid DO Admitting Physician: Hansel Rashid DO Vital Signs Most recent to 1 oldest [Reference Range]: Temperature Oral 36.3 degC [35.8-37.3 degC] (11/06/14 2:33 PM) Temperature Temporal 37.6 degC Artery [36.3-37.8 (11/06/14 12:19 PM) degC] Peripheral Pulse 75 bpm Rate [60-100 bpm] (11/06/14 1:10 PM) Heart Rate Monitored 84 bpm [60-100 bpm] (11/06/14 2:33 PM) Respiratory Rate 14 br/min [14-20 br/min] (11/06/14 2:33 PM) Blood Pressure 110/58 mmHg [90-140/60-90 mmHg] (11/06/14 2:33 PM) Mean Arterial 75 mmHg Pressure, Cuff (11/06/14 2:31 PM) SpO2 98 % (11/06/14 2:33 PM) Problem List Condition Effective Dates Status Health Status Informant Acute Active pain(Confirmed) [place] III diagnosis: Active migraines, PKU(Confirmed) [place] IV diagnosis: Active problems with chronic illness, primary support(Confirmed) [place] V diagnosis: Active GAF 20(Confirmed) [place] II diagnosis Active deferred(Confirmed) Depression(Confirmed Active patient ) Hypothyroid(Confirme Active patient d) Ineffective coping Resolved (individual)(Confirm ed)1 Migraine(Confirmed) Active patient PKU Active patient (phenylketonuria)(Co nfirmed) Psychosis(Confirmed) Active patient [place] I: Active Schizoaffective disorder, bipolar type without [...] takes steroids 2pt has PKU 3pku Medications [place] Thyroid 60 mg, Oral, BID, 0 Refill(s) [...] 10/24/14 Electroconvulsive Therapy ECT10 10/21/14 Examination Under [id number] 10/21/14 Electroconvulsive Therapy ECT12 10/19/14 Examination Under [id number] 10/19/14 Appendectomy Back care Carpal tunnel release [...]
--- OUTSIDE RECORDS SUMMARY | 2016-08-12 14:31 | XMS REPORT | Referral Summary ---
Author Author [facility] Organization [facility] Address Unknown Phone Unavailable Care Team Providers Care Statistical Assistant Name Role Phone Kimo Contreras Primary Care Physician [phone] Encounter VC Date(s): 10/24/14 - 12/02/14 [facility] [address], [place] [address] Final: MAJOR DEPRESSIVE DISORDER, RECURRENT EPISODE, SEVERE DEGREE, WITHOUT MENTION OF PSYCHOTIC BEHAVIOR Discharge Diagnosis: Depression, major, severe recurrence Discharge Disposition: 01-Home or Self Care Attending Physician: Alli Doss MD Admitting Physician: Alli Doss MD Vital Signs Most recent to 1 oldest [Reference Range]: Temperature Temporal 36.2 degC Artery [36.3-37.8 *LOW* degC] (11/02/14 5:56 AM) Apical Heart Rate 84 bpm [60-100 bpm] (11/02/14 5:56 AM) Peripheral Pulse 79 bpm Rate [60-100 bpm] (10/31/14 6:17 AM) Heart Rate Monitored 94 bpm [60-100 bpm] (11/02/14 7:55 AM) Respiratory Rate 12 br/min [14-20 br/min] *LOW* (11/02/14 7:55 AM) Blood Pressure 130/84 mmHg [90-140/60-90 mmHg] (11/02/14 7:55 AM) Mean Arterial 114 mmHg Pressure, Cuff (11/02/14 7:55 AM) SpO2 95 % (11/02/14 7:55 AM) Problem List Condition Effective Dates Status Health Status Informant Acute Active pain(Confirmed) [place] III diagnosis: Active migraines, PKU(Confirmed) [place] IV diagnosis: Active problems with chronic illness, primary support(Confirmed) [place] V diagnosis: Active GAF 20(Confirmed) [place] II diagnosis Active deferred(Confirmed) Depression(Confirmed Active patient ) Hypothyroid(Confirme Active patient d) Ineffective coping Resolved (individual)(Confirm ed)1 Migraine(Confirmed) Active patient PKU Active patient (phenylketonuria)(Co nfirmed) Psychosis(Confirmed) Active patient [place] I: Active Schizoaffective disorder, bipolar type without [...] takes steroids 2pt has PKU 3pku Medications Ellis Thyroid 60 mg, Oral, BID, 0 Refill(s) [...] 10/24/14 Electroconvulsive Therapy ECT10 10/21/14 Examination Under [id number] 10/21/14 Electroconvulsive Therapy ECT12 10/19/14 Examination Under [id number] 10/19/14 Appendectomy Back care Carpal tunnel release [...]
--- OUTSIDE RECORDS SUMMARY | 2016-08-12 14:31 | XMS REPORT | Referral Summary ---
Author Author [facility] Organization [facility] Address Unknown Phone Unavailable Care Team Providers Care Urban And Regional Planner Name Role Phone Kimo Contreras Primary Care Physician [phone] Encounter VC HAJA [id number] Date(s): 04/23/16 - 04/23/16 [facility] [address] [place] [address] Discharge Diagnosis: Acute exacerbation of chronic low back pain Final: Other chronic pain Final: Low back pain Discharge Disposition: 01-Home or Self Care Attending Physician: Grayson Pro MD Admitting Physician: Grayson Pro MD Vital Signs Most recent to 1 oldest [Reference Range]: Temperature Oral 37.0 degC [35.8-37.3 degC] (04/23/16 1:25 PM) Peripheral Pulse 99 bpm Rate [60-100 bpm] (04/23/16 3:44 PM) Respiratory Rate 20 br/min [14-20 br/min] (04/23/16 3:44 PM) Blood Pressure 114/72 mmHg [90-140/60-90 mmHg] (04/23/16 3:44 PM) SpO2 99 % (04/23/16 3:44 PM) Problem List Condition Effective Dates Status Health Status Informant Acute Active pain(Confirmed) [place] III diagnosis: Active migraines, PKU(Confirmed) [place] IV diagnosis: Active problems with chronic illness, primary support(Confirmed) [place] V diagnosis: Active GAF 20(Confirmed) [place] II diagnosis Active deferred(Confirmed) Depression(Confirmed Active patient ) Hypothyroid(Confirme Active patient d) Ineffective coping Resolved (individual)(Confirm ed)1 Migraine(Confirmed) Active patient PKU Active patient (phenylketonuria)(Co nfirmed) Psychosis(Confirmed) Active patient [place] I: Active Schizoaffective disorder, bipolar type without [...] takes steroids 2pt has PKU 3pku Medications [place] Thyroid 60 mg, Oral, BID, 0 Refill(s) [...] 10/24/14 Electroconvulsive Therapy ECT10 10/21/14 Examination Under [id number] 10/21/14 Electroconvulsive Therapy ECT12 10/19/14 Examination Under [id number] 10/19/14 Appendectomy Back care Carpal tunnel release [...]
[2016-08-12] MEDS ORDERED: LURA80TA PO (14:44)
[2016-08-12] MEDS ORDERED: THYR60TA2 PO (14:44)
[2016-08-12] MEDS ORDERED: TOPI200T PO (14:44)
[2016-08-12] MEDS ORDERED: VENL-68 PO (14:44)
[2016-08-12] MEDS ORDERED: VITA1TAB21 PO (14:47)
[2016-08-12] MEDS ORDERED: HYDR25TA85 PO (14:47)
[2016-08-12] MEDS ORDERED: CLON0.5T PO (14:47)
[2016-08-12] MEDS ORDERED: GABA-354 PO (14:47)
[2016-08-12] MEDS ORDERED: PROM25TA7 PO (14:47)
[2016-08-12] MEDS ORDERED: KETOROLAC 60mg/2ml INJECTION IM ONE (15:00)
[2016-08-12] MEDS ORDERED: PROMETHAZINE 25 MG INJECTION IM ONE (15:00)
--- NOTE | 2016-08-12 15:02 | ERPDOC ---
Departure Disposition Decision Date: Aug 12, 2016 Disposition Decision Time: 16:11 (VIOLETTA ORDONEZ APRN) Disposition: 01 DISCHARGED HOME, SELF-CARE Impression Impression (VIOLETTA ORDONEZ APRN) Impression: Primary Impression: Migraine Qualified Codes: G43.909 - Migraine, unspecified, not intractable, without status migrainosus Severity: Moderate (VIOLETTA ORDONEZ APRN) Condition: Stable Seen By: Mid-level only (VIOLETTA ORDONEZ APRN) Patient Instructions: Migraine Headache (ED) Problems/Meds/Labs Reviewed?: Yes Medications reviewed and manag: Yes (VIOLETTA ORDONEZ APRN) Additional Instructions: Follow up with your primary care provider for reevaluation. If you should have any new issues/concerns then return to ER. Go home and rest in a dark and quiet room. Follow up care ordered?: Yes Mental Status: Alert, Oriented (VIOLETTA ORDONEZ APRN) HPI - Headache General Chief Complaint: Headache Stated Complaint: MIGRAINE Time Seen by Provider: 14:30 Source: patient Exam Limitations: no limitations (VIOLETTA ORDONEZ APRN) Time Seen by Provider: 14:30 (LASHA REA MD) HPI - Headache Initial Comments She has had a migraine since yesterday morning. She does have a history of migraines in the past. She had been evaluated at the [facility] a few years ago and was given Toradol to give herself injections but is out of all of this. She has not taken anything for her headache this time. Has been having nausea/vomiting and photosensitivity. This is like her usual migraines that she gets. She denies any fever or chills. Usually goes to [facility] for treatment but wanted to avoid a long ER visit so decided to come to [place] today. She states that she usually uses just Toradol but lately has been needing different pain medication and does request Nubain and Phenergan. Occurred At: home Onset: Gradual Duration: other (For the last 2 days) Severity/Quality: moderate Prior Headaches/Recent Trauma: frequent headaches Associated Symptoms: nausea/vomiting, DENIES: confusion, facial pain, fatigue, fever/chills, flushing, loss of consciousness, nasal congestion, nasal drainage , numbness in legs/feet, rash, seizures, sinus infection, stiff neck, vision changes, weakness Hx of Similar Symptoms: Yes (NOLD,VIOLETTA N HAIR DRYER) Allergies: Coded Allergies: dexamethasone (Verified Allergy, Unknown, VOMITING, 08/12/16) diphenhydramine (Verified Allergy, Unknown, AGITATION, 08/12/16) meperidine (Verified Allergy, Unknown, 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, 08/12/16) methylprednisolone (Verified Allergy, Unknown, VOMITING, 08/12/16) prednisone (Verified Allergy, Unknown, VOMITING, 08/12/16) sumatriptan (Verified Allergy, Unknown, ANXIETY, 08/12/16) Past History Past Medical History Neurological: migraines (NOLD,VIOLETTA N HAIR DRYER) Surgical History General: other (thyroidectomy) Reproductive/: hysterectomy Joint: carpal tunnel, hip, knee (NOLD,VIOLETTA N HAIR DRYER) Family History Family History: Negative (NOLD,VIOLETTA N HAIR DRYER) Social History Smoking Status: Never smoker Substance Use Type: does not use Alcohol Intake: none (NOLD,VIOLETTA N HAIR DRYER) Review of Systems Constitutional Constitutional: DENIES: chills, dizziness, fatigue, fever, weakness (NOLD, VIOLETTA N HAIR DRYER) Eyes Vision: DENIES: blurring, double vision (NOLD,VIOLETTA N HAIR DRYER) ENMT Ears: DENIES: drainage, pain Sinuses: DENIES: congestion, rhinorrhea Mouth/Throat: DENIES: painful swallowing, scratchy throat, sore throat (NOLD, VIOLETTA N HAIR DRYER) Cardiovascular Cardiac: DENIES: chest pain, orthopnea Rhythm/Rate: DENIES: irregular beat, palpitations (NOLD,VIOLETTA N HAIR DRYER) Pulmonary Respiratory: DENIES: cough, dyspnea, sputum, tachypnea (NOLD,VIOLETTA N HAIR DRYER) GI Upper Abdomen: nausea, vomiting, DENIES: pain Lower Abdomen: DENIES: constipation, diarrhea, pain (NOLD,VIOLETTA N HAIR DRYER) Integumentary Skin: DENIES: rash (NOLD,VIOLETTA N HAIR DRYER) Neurological General: DENIES: headache, numbness, tingling, weakness (NOLD,VIOLETTA N HAIR DRYER) Physical Exam General General Nourishment: well nourished, well developed, appears stated age, no acute distress, adult General Body Habitus: well groomed (VIOLETTA ORDONEZ APRN) Vitals and Pain First Documented Vital Signs Date Time Temp Pulse Resp B/P Pulse Ox O2 Delivery O2 Flow Rate FiO2 08/12/16 14:24 97.9 102 16 139/72 99 Room Air (LASHA REA MD) Vitals and Pain Weight: Kilograms: 100.000 Height (feet): 5 Height (inches): 6.00 Triage Pain Scale: (VIOLETTA ORDONEZ APRN) RN VS reviewed by Provider: Yes (VIOLETTA ORDONEZ APRN) Normal Exams: Head: Normocephalic w/o trauma Eyes: Pupils are PERRLA w/ EOMI, No scleral icterus, irritation, or foreign bodies noted ENMT: No facial trauma, nasal exudates, pharyngeal erythema, or exudates are noted Neck: Full range of motion, without adenopathy, JVD, bruits or thyromegaly Chest/Resp: Clear all estrada, with good airflow, and symmetry bilaterally CV: Regular rate and rhythm, without murmur or gallop, Pulses 2+ all extremities, capillary refill, <2 seconds all ext., no pedal edema noted Abdomen: Bowel sounds positive, soft, non-tender, non-distended, no hepatosplenomegaly, masses or bruits noted Lymphatic: No lymphadenopathy, or lymphedema noted Integumentary: No rashes, hives, or bruising noted Neurologic: Patient is alert, and oriented, cranial nerves, motor/sensory/ cerebellar, exams w/o gross deficits, to observation Psychiatric: Patient exhibits, appropriate attention, emotion and affect (VIOLETTA ORDONEZ APRN) Differential Diagnoses Considering: Headache, Headache - Migraine, Headache - Tension/Muscle, Hypertensive Emergency, Increased ICP, Sinusitis - Sphenoid, Sinusitis - Maxillary, Sinusitis - Frontal, Viral Syndrome (VIOLETTA ORDONEZ APRN) Progress Results/Orders Orders Procedure Category Date Status Time Ketorolac (Toradol) PHA 08/12/16 Complete 15:00 Promethazine PHA 08/12/16 Complete (Phenergan) 15:00 Nalbuphine (Nubain) PHA 08/12/16 Complete 16:15 (LASHA REA MD) Medications Current ED Medications Ketorolac Tromethamine (Toradol) 60 mg O ONCE IM Last administered on 15:03; Start 08/12/16 at 15:00; Stop 08/12/16 at 15:01; Status DC Promethazine HCl (Phenergan) 25 mg O ONCE IM Last administered on 08/12/16 15 :04; Start 08/12/16 at 15:00; Stop 08/12/16 at 15:01; Status DC Nalbuphine HCl (Nubain) 10 mg O ONCE IM Last administered on 08/12/16 16:17; Start 08/12/16 at 16:15; Stop 08/12/16 at 16:16; Status DC (LASHA REA MD) Progress Progress Still having headache after Toradol and Promethazine given. Will go ahead and give her an injection of Nubain after discussion with Dr Rea. I did call and speak with [facility] and she has had frequent visits to their ER as well as their immediate care for migraines. Will advise that she follow up with her PCP this week for further management of her migraines. (VIOLETTA ORDONEZ APRN) Progress Patient's history and exam discussed with HAIR DRYER. Options for treatment of headache discussed as pt requested Nubain. Agree with care given in ER. (LASHA REA MD) VIOLETTA ORDONEZ APRN Aug 12, 2016 15:02 LASHA REA MD Aug 12, 2016 18:44 LASHA REA MD Aug 12, 2016 18:44 VIOLETTA ORDONEZ APRN Aug 12, 2016 15:02 LASHA REA MD Aug 12, 2016 18:44
--- OUTSIDE RECORDS SUMMARY | 2016-08-12 15:15 | XMS REPORT ---
Author Author [facility], SYSTEM Organization Unknown Address Unknown Phone Unavailable Care Team Providers Care Mirror Polisher Name Role Phone UNASSIGNED DOCTOR , DOCTOR PP [phone] Reason For Visit Reason for Visit from [...] 4:00 PM * Address # 1 : [phone] * #2 Office appointment: : Dr. Calvin Gonzales [facility] * #2 Date/Time : 08/29/2016 1:40 PM * Address # 2 : [phone] Procedures No relevant procedures performed. Immunizations No [...] the responsibility of the patient or patient sales representative facility services to confirm the list of medications with [...] oral daily for PKU * thyroid (pork) ([place] Thyroid) 60 mg Tablet, Ordered By: DARLING [...]
--- OUTSIDE RECORDS SUMMARY | 2016-08-12 15:16 | XMS REPORT ---
Author Author [facility], [facility], [place] Unknown Address Unknown Phone Unavailable Allergies, Adverse Reactions, Alerts * Meperidine causes Severe Anaphylaxis. * Latex Allergy has not been assessed. * IV Contrast Allergy has not been assessed. * No Known Food Allergies. Problems * Anxiety* Status:Inactive. * Depression* Status:Active. * Difficulty Sleeping* Status:Inactive. * Hallucinations* Status:Active. Procedures No relevant procedures performed. Medication It is the responsibility of the patient or patient inbound sales representative to confirm the list of [...] care physcian 1 week after discharge from [facility]. Stopped medications* lithium carbonate 150 mg Capsule Directions: 1 capsule oral twice a day * thyroid (pork) ([place] Thyroid) 60 mg Tablet Directions: 1 tablet [...]
--- OUTSIDE RECORDS SUMMARY | 2016-08-12 15:16 | XMS REPORT | Continuity of Care Document ---
Author Author [facility] Organization [facility] Address Unknown Phone Unavailable Allergies Active Description Code Type Severity Reaction Onset Reported/Identified Relationship to Patient Clinical Status Yes BENADRYL [id number] Drug Allergy N/A N/A Yes DEMEROL [id number] Drug Allergy N/A N/A Yes SHELLFISH Drug [...] Attending Type Code Diagnosis Diagnosed By 02/02/2013 Erma Valentine DO Final 244.9 HYPOTHYROIDISM NOS 02/02/2013 [...] severe w/o psych features 07/27/2016 LIBBY STATON [id number] Suicidal ideations 07/27/2016 LIBBY STATON Z811 Family history of alcohol abuse and dependence 07/27/2016 LIBBY STATON Z818 Family history of other mental and behavioral disorders 07/27/2016 LIBBY STATON Z885 Allergy status to narcotic agent status Procedures Code Description Performed By Performed On H2011 [address] W [id number] Petit, Benjamen 12/21/2015 22936 Petit, Benjamen 12/21/2015 H2011 Haroldo Daly H2011 [...] Status Pt. Type Provider Facility Loc./Unit Complaint [id number] 09/03/2013 11:23:00 2013 14:35:00 DIS Emergency Gloria ADAMS, Rosalio Hayden [facility] [id number] 05/24/2013 19:23:00 2013 21:00:00 DIS Emergency Artemio ADAMS, [facility] FERM [id number] 02/02/2013 18:17:00 2012 20:00:00 DIS Inpatient Erma Valentine DO [facility] on Dat [facility] [id number] 01/04/2013 20:07:00 Document Registration
--- NOTE | 2016-08-12 15:59 | NUR ---
STATUS PATIENT STATES, "MY HEADACHE IS STILL THROBBING". RATES PAIN 8/10.
[2016-08-12] MEDS ORDERED: NALBUPHINE 10mg/ml INJECTION IM ONE (16:15)
[2016-08-12 16:31] VITALS: BP 139/72; PULSE 95; RESP 15; TEMP 97.9; O2SAT 98
== END 2016-08-12 16:31 | disposition home or self-care (01) ==
LOC: ED 14:24
DX: G43.909 Migraine, unspecified, not intractable, without status migrainosus (principal)
CPT/HCPCS: 96372; 99283; J1885; J2300; J2550

== ENCOUNTER 2016-09-14 15:55 | Emergency (ER) | payer MEDICARE, BC ==
[~2016-09-14] VITALS: Ht 167.6 cm; Wt 105.7 kg
[~2016-09-14 15:55] MED LIST: CLON0.5T PO; GABA-354 PO; HYDR25TA85 PO; LURA80TA PO; PROM25TA7 PO; THYR60TA2 PO; TOPI200T PO; VENL-68 PO; VITA1TAB21 PO
[2016-09-14 15:57] VITALS: TEMP 99; Ht 167.6 cm; Wt 105.7 kg
--- OUTSIDE RECORDS SUMMARY | 2016-09-14 15:59 | XMS REPORT ---
Author Author [facility], [facility] Unknown Address Unknown Phone Unavailable Allergies, Adverse Reactions, Alerts * Meperidine causes Severe Anaphylaxis. * Latex Allergy has not been assessed. * IV Contrast Allergy has not been assessed. * No Known Food Allergies. Problems * Anxiety* Status:Inactive. * Depression* Status:Active. * Difficulty Sleeping* Status:Inactive. * Hallucinations* Status:Active. Procedures No relevant procedures performed. Medication It is the responsibility of the patient or patient metals sales representative to confirm the list of [...] care physcian 1 week after discharge from [facility]. Stopped medications* lithium carbonate 150 mg Capsule Directions: 1 capsule oral twice a day * thyroid (pork) ([place] Thyroid) 60 mg Tablet Directions: 1 tablet [...]
--- OUTSIDE RECORDS SUMMARY | 2016-09-14 15:59 | XMS REPORT ---
Author Author [facility] Organization Unknown Address Unknown Phone Unavailable Care Team Providers Care Waterside Worker Name Role Phone UNASSIGNED DOCTOR , DOCTOR PP [phone] Reason For Visit Reason for Visit from [...] 4:00 PM * Address # 1 : [phone] * #2 Office appointment: : Dr. Calvin Gonzales [facility] * #2 Date/Time : 08/29/2016 1:40 PM * Address # 2 : [phone] Procedures No relevant procedures performed. Immunizations No [...] the responsibility of the patient or patient healthcare representative to confirm the list of medications [...] oral daily for PKU * thyroid (pork) ([place] Thyroid) 60 mg Tablet, Ordered By: DARLING [...]
--- OUTSIDE RECORDS SUMMARY | 2016-09-14 15:59 | XMS REPORT ---
Author Author Ceasar Hobson [facility] Address [address] [place] [address] Care Team Providers Care Setter Juice Packaging Machines Name Role Phone Ceasar Hobson Unavailable [phone] PROBLEMS Type Condition ICD9-CM Code [id number] Code Onset Dates Condition Status SNOMED Code Problem Vitamin D deficiency E55.9 Active 42769739 Problem PKU (phenylketonuria) E70.0 Active 3346264 Problem Phenylketonuria (PKU) 270.1 Active 0578314 Assessment PKU (phenylketonuria) E70.0 Aug, Active 1876853 ALLERGIES Substance Reaction Event Type Date Status Imitrex Unknown Drug Allergy Aug, Active Steroids Unknown Drug Allergy Aug, Active Lanaflex dizziness Drug Allergy Aug, Active Demerol Unknown Drug Allergy Aug, Active Benadryl Unknown Drug Allergy Aug, Active SOCIAL HISTORY No smoking Hx information available PLAN OF CARE VITAL SIGNS Weight 229.2 lbs 2016-08-27 Height 65 in 2016-08-27 BMI 38.14 kg/m2 2016-08-27 Heart Rate 80 /min 2016-08-27 Blood pressure systolic 110 mm Hg 2016-08-27 Blood pressure diastolic 58 mm Hg 2016-08-27 MEDICATIONS Medication Instructions Dosage Frequency Start Date End Date Duration Status Kuvan 500 mg orally daily at the same time each day 4 packets (2000mg) Dec, Active Effexor XR 37.5 MG Orally Once a day for depression 1 capsule with food Active Fluoxetine 40 mg Orally Once a day for depression 1 capsule in the morning Nov, Active Diazepam 10 MG Orally TID PRN back pain 1 tablet as needed Active PhenylAde Essential Drink Mix - Orally daily - taken throughout the day 240 g daily - all flavors Jun, Active B-Complex - Orally bid, Nature's Made 2 morning and 2 afternoon Active Klonopin 1 MG Orally QHS for sleep 1 tablet Active Low protein food n/a orally daily 800 mg PHE or 16 g protein per day 24h 1 month Active Cameron Thyroid 60 MG Orally Once a day 2.5 tablet 24h Active Gabapentin 300 MG Orally QHS for sleep 1 capsule Feb, Active Vitamins/Minerals - Jun, Active Topamax 100 mg Orally Twice a day 1 tablet 12h Dec, Active RESULTS Name Result Date Reference Range ALBUMIN (Serum) 2016-08-27 ALBUMIN 3.5 3.4-5.0 * CBC (NO DIFF) 2016-08-27 WHITE BLOOD CELL 8.0 5.0-10.0 RED BLOOD CELL 4.38 4.00-6.00 HEMOGLOBIN 13.5 12.0-16.0 HEMATOCRIT 39.5 37.0-47.0 MEAN CELL VOLUME 90.2 80.0-100.0 MEAN CELL HGB 30.8 27.0-33.0 MEAN CELL HGB CONCENTRATION 34.2 32.0-37.0 RED CELL DISTRIBUTION WIDTH 13.1 11.0-15.6 PLATELET COUNT 372 150-400 FERRITIN 2016-08-27 FERRITIN 49 8-252 PREALBUMIN 2016-08-27 PREALBUMIN 24 20-40 PROTEIN TOTAL (TP) 2016-08-27 TOTAL PROTEIN 6.9 6.4-8.2 * VITAMIN D 25-HYDROXY (MOST COMMON) 2016-08-27 VITAMIN D 25-HYDROXY 25.1 30.0-100.0 AMINO ACIDS PROF QN BLD 2016-08-27 AMINO ACID QUANT. RESULT PKU CLINIC FILTER PAPER PROCEDURES Procedure Date Ordered Related Diagnosis Body Site Prealbumin August 27, 2016 Ferritin August 27, 2016 Office visit estab lev 3 August 27, 2016 CBC without diff August 27, 2016 Vitamin D3 25 August 27, 2016 Protein total August 27, 2016 Albumin serum August 27, 2016 IMMUNIZATIONS No Known Immunizations
--- OUTSIDE RECORDS SUMMARY | 2016-09-14 15:59 | XMS REPORT ---
Author Author Ceasar Hobson [facility] Address [address] [place] [address] Care Team Providers Care Programs Assistant Name Role Phone Ceasar Hobson Unavailable [phone] PROBLEMS Type Condition ICD9-CM Code [id number] Code Onset Dates Condition Status SNOMED Code Problem PKU (phenylketonuria) E70.0 Active 1365934 Problem Phenylketonuria (PKU) 270.1 Active 7872220 ALLERGIES Unknown Allergies SOCIAL HISTORY No smoking Hx information available PLAN OF CARE VITAL SIGNS MEDICATIONS Unknown Medications RESULTS No Results PROCEDURES No Known procedures IMMUNIZATIONS No Known Immunizations
--- OUTSIDE RECORDS SUMMARY | 2016-09-14 16:00 | XMS REPORT ---
Author Author Ceasar Hobson [facility] Address [address] [place] [address] Care Team Providers Care Claims Analyst Name Role Phone Ceasar Hobson Unavailable [phone] PROBLEMS Type Condition ICD9-CM Code [id number] Code Onset Dates Condition Status SNOMED Code Problem PKU (phenylketonuria) E70.0 Active 7827023 Problem Phenylketonuria (PKU) 270.1 Active 6668709 Assessment PKU (phenylketonuria) E70.0 Mar, Active 0348321 ALLERGIES Substance Reaction Event Type Date Status Steroids Unknown Drug Allergy Mar, Active Lanaflex dizziness Drug Allergy Mar, Active Demerol Unknown Drug Allergy Mar, Active Benadryl Unknown Drug Allergy Mar, Active SOCIAL HISTORY No smoking Hx information available PLAN OF CARE VITAL SIGNS Weight 226.6 lbs 2016-03-26 Height 65.24 in 2016-03-26 BMI 37.43 kg/m2 2016-03-26 Heart Rate 80 /min 2016-03-26 Blood pressure systolic 112 mm Hg 2016-03-26 Blood pressure diastolic 60 mm Hg 2016-03-26 MEDICATIONS Medication Instructions Dosage Frequency Start Date End Date Duration Status Kuvan 500 mg orally daily at the same time each day 4 packets (2000mg) Dec, Active Low protein food n/a orally daily 800 mg PHE or 16 g protein per day 24h one month Active Topamax 100 mg Orally Twice a day 1 tablet 12h Dec, Active Vitamins/Minerals - Jun, Active Fluoxetine 40 mg Orally Once a day for depression 1 capsule in the morning Nov, Active Trazodone HCl 150 MG Orally qhs for sleep May, Active [place] Thyroid 60 MG Orally Once a day 2.5 tablet 24h Active PKU 3 1 Tbsp=8.5 gms Orally for PKU daily mixed with water or fluid of choice 88 gms per day Jul, Active Migranal 4 MG/ML Nasally as directed - for migranes 1 spary on set of migrane. May repeat xq in 15 min. do not exceed 6/d or 8/week Jul, Active Gabapentin 300 MG Orally QHS for sleep 1 capsule Feb, Active RESULTS Name Result Date Reference Range PKU CLINIC FILTER PAPER PROCEDURES Procedure Date Ordered Related Diagnosis Body Site Office visit estab lev 3 Mar 26, 2016 IMMUNIZATIONS No Known Immunizations
--- OUTSIDE RECORDS SUMMARY | 2016-09-14 16:00 | XMS REPORT | Continuity of Care Document ---
Demographics Preferred Language Unknown Marital Status Unknown Latter Day Affiliation Unknown Race Unknown Ethnic Group Unknown Author Author [facility] Organization [facility] Address Unknown Phone Unavailable Support Name Relationship Address Phone LASAH MOTA MD Caregiver [address] [place] [address] [place] [address] Unavailable Chief Complaint and Reason for Visit Chief Complaint Headache Reason for Visit Migraine Problems Past Problems Medical Problem Onset Date Migraine Unknown Medications Current Home Medications Medication Dose Units Route Directions Days Qty Instructions Start Date Clonazepam (Klonopin) 0.5 Mg Tablet 0.5 Mg Oral Bedtime 08/12/16 Gabapentin 400 Mg Capsule 400 Mg Oral Bedtime 08/12/16 Hydroxyzine Hcl 25 Mg Tablet 25 Mg Oral Bedtime 08/12/16 Lurasidone Hcl (Latuda) 80 Mg Tablet 80 Mg Oral Daily 08/12/16 Promethazine Hcl 25 Mg Tablet 25 Mg Oral As Needed 08/12/16 Thyroid,Pork ([place] Thyroid) 60 Mg Tablet 60 Mg Oral Three Times A Day 08/12/16 Topiramate (Topamax) 200 Mg Tablet 200 Mg Oral Bedtime 08/12/16 Venlafaxine Hcl (Venlafaxine Hcl Er) 75 Mg Cap.er.24h 75 Mg Oral Daily 08/12/16 Vitamin B Complex 1 Each Tablet 2 Tab Oral Daily 08/12/16 Social History Social History Problem Response Recorded Date/Time Onset Date Status Hx Alcohol Use No 08/12/2016 2:39pm Not Applicable Not Applicable Query Response Start Date Stop Date Smoking Status Never smoker Hospital Discharge Instructions No hospital discharge instructions. Plan of Care Discharge Date 08/12/16 4:31pm Disposition 01 DISCHARGED HOME, SELF-CARE Condition at Discharge Stable Instructions/Education Provided Migraine Headache (ED) Prescriptions See Medication Section Additional Instructions/Education Follow up with your primary care provider for reevaluation. If you should have any new issues/concerns then return to ER. Go home and rest in a dark and quiet room. Care Plan and Goals Physician Care Plan Problem:Migraine Goal: Follow up with primary care provider Instructions: Take medications and follow care plan as discussed/written Functional Status No functional status results. 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 Vital Signs Acute Vital Signs Vital Response Date/Time Temperature (Fahrenheit) 97.9 deg F (96.8 - 99.1) 08/12/2016 2:24pm Temperature (Calculated Celsius) 36.83619 degrees C (36.0 - 37.3) 08/12/2016 2:24pm Pulse Rate (adult) 95 bpm (60 - 100) 08/12/2016 4:19pm Respiratory Rate 15 breaths/min (10 - 20) 08/12/2016 4:19pm O2 Sat by Pulse Oximetry 98 % (90 - 100) 08/12/2016 4:19pm Blood Pressure 139/72 mm Hg 08/12/2016 2:24pm Height (Feet) 5 feet 08/12/2016 2:24pm Height (Inches) 6.00 inches 08/12/2016 2:24pm Weight (Kilograms) 100.000 kg 08/12/2016 2:24pm Body Mass Index (BMI) 35.0 08/12/2016 2:24pm Results No known relevant diagnostic tests, laboratory data and/or discharge summary. Procedures No known history of procedures. Encounters Encounter Location Arrival/Admit Date Discharge/Depart Date Attending Provider Departed Emergency Room [facility] 08/12/16 2:24pm 08/12/16 4: 31pm LASHA MOTA MD Recent Diagnosis
--- OUTSIDE RECORDS SUMMARY | 2016-09-14 16:00 | XMS REPORT | Continuity of Care Document ---
Author Author [facility] Organization [facility] Address Unknown Phone Unavailable Allergies Active Description Code Type Severity Reaction Onset Reported/Identified Relationship to Patient Clinical Status Yes BENADRYL [id number] Drug Allergy N/A N/A Yes DEMEROL [id number] Drug Allergy N/A N/A Yes SHELLFISH Drug [...] PKU AND CAN NOT EAT IT 06/30/2016 Yes sumatriptan sumatriptan Drug Allergy Moderate pannic [...] severe w/o psych features 07/27/2016 LIBBY STATON Q14318 Suicidal ideations 07/27/2016 LIBBY STATON Z811 Family history of alcohol abuse and dependence 07/27/2016 LIBBY STATON Z818 Family history of other mental and behavioral disorders 07/27/2016 LIBBY STATON Z885 Allergy status to narcotic agent status Procedures Code Description Performed By Performed On H[address] [address] Petit, Benjamen 12/21/2015 51947 Petit, Benjamen 12/21/2015 H2011 Haroldo Daly H2011 Haroldo Daly H2011 Siedler, Josephine Kasia 12/22/2015 H2011 Siedler, Josephine Kasia 12/22/2015 H2011 Almquist-Wiseman, Kylie Magnolia 12/22/2015 H2011 Almquist-Wismean, Kylie Magnolia 12/22/2015 Results Test Result Range [...] Status Pt. Type Provider Facility Loc./Unit Complaint [id number] 09/03/2013 11:23:00 2013 14:35:00 DIS Emergency Gloria ADAMS, Rosalio Hayden [facility] [id number] 05/24/2013 19:23:00 2013 21:00:00 DIS Emergency Artemio ADAMS, Yo [facility]M [id number] 02/02/2013 18:17:00 2012 20:00:00 DIS Inpatient Erma Valentine DO [facility] on Dat [place] [id number] 01/04/2013 20:07:00 Document Registration
--- OUTSIDE RECORDS SUMMARY | 2016-09-14 16:00 | XMS REPORT ---
Author Author Ceasar Hobson [facility] Address [address] [place] [address] Care Team Providers Care Filling Technician Name Role Phone Ceasar Hobson Unavailable [phone] PROBLEMS Type Condition ICD9-CM Code QEC37-PE Code Onset Dates Condition Status SNOMED Code Problem Vitamin D deficiency E55.9 Active 74520262 Problem PKU (phenylketonuria) E70.0 Active 2479558 Problem Phenylketonuria (PKU) 270.1 Active 7659573 ALLERGIES Unknown Allergies SOCIAL HISTORY No smoking Hx information available PLAN OF CARE VITAL SIGNS MEDICATIONS Unknown Medications RESULTS No Results PROCEDURES No Known procedures IMMUNIZATIONS No Known Immunizations
--- OUTSIDE RECORDS SUMMARY | 2016-09-14 16:05 | XMS REPORT ---
Author Author [facility] Organization Unknown Address Unknown Phone Unavailable Care Team Providers Care Analytics Senior Manager Name Role Phone UNASSIGNED DOCTOR , DOCTOR PP [phone] Reason For Visit Reason for Visit from [...] 4:00 PM * Address # 1 : [phone] * #2 Office appointment: : Dr. Calvin Gonzales [facility] * #2 Date/Time : 08/29/2016 1:40 PM * Address # 2 : [phone] Procedures No relevant procedures performed. Immunizations No [...] the responsibility of the patient or patient dermatology sales representative to confirm the list of [...] oral daily for PKU * thyroid (pork) ([place] Thyroid) 60 mg Tablet, Ordered By: DARLING [...]
--- OUTSIDE RECORDS SUMMARY | 2016-09-14 16:06 | XMS REPORT | Continuity of Care Document ---
Author Author [facility] Organization [facility] Address Unknown Phone Unavailable Allergies Active Description Code Type Severity Reaction Onset Reported/Identified Relationship to Patient Clinical Status Yes BENADRYL [id number] Drug Allergy N/A N/A Yes DEMEROL [id number] Drug Allergy N/A N/A Yes SHELLFISH Drug [...] severe w/o psych features 07/27/2016 LIBBY STATON N47838 Suicidal ideations 07/27/2016 LIBBY STATON Z811 Family history of alcohol abuse and dependence 07/27/2016 LIBYB STATON Z818 Family history of other mental and behavioral disorders 07/27/2016 LIBBY STATON Z885 Allergy status to narcotic agent status Procedures Code Description Performed By Performed On H2011 [address] [address] Petit, Benjamen 12/21/2015 524[address] Petit, Benjamen 12/21/2015 H2011 Haroldo Daly H2011 [...] Status Pt. Type Provider Facility Loc./Unit Complaint [id number] 09/03/2013 11:23:00 2013 14:35:00 DIS Emergency Gloria ADAMS, Rosalio Hayden [facility] [id number] 05/24/2013 19:23:00 2013 21:00:00 DIS Emergency Artemio ADAMS, Yo [facility] FERM [id number] 02/02/2013 18:17:00 2012 20:00:00 DIS Inpatient Erma Valentine DO [facility] on Dat [place] [id number] 01/04/2013 20:07:00 Document Registration
--- OUTSIDE RECORDS SUMMARY | 2016-09-14 16:06 | XMS REPORT ---
Author Author [place], [facility] Unknown Address Unknown Phone Unavailable Allergies, Adverse Reactions, Alerts * Meperidine causes Severe Anaphylaxis. * Latex Allergy has not been assessed. * IV Contrast Allergy has not been assessed. * No Known Food Allergies. Problems * Anxiety* Status:Inactive. * Depression* Status:Active. * Difficulty Sleeping* Status:Inactive. * Hallucinations* Status:Active. Procedures No relevant procedures performed. Medication It is the responsibility of the patient or patient installation service representative to confirm the list of medications [...] care physcian 1 week after discharge from [facility]. Stopped medications* lithium carbonate 150 mg Capsule Directions: 1 capsule oral twice a day * thyroid (pork) ([place] Thyroid) 60 mg Tablet Directions: 1 tablet [...]
[2016-09-14] MEDS ORDERED: TRAM50TA4 PO (16:11)
[2016-09-14] MEDS ORDERED: NAPR220T61 PO (16:11)
[2016-09-14] MEDS ORDERED: DIAZ10TA4 PO (16:11)
--- NOTE | 2016-09-14 16:13 | ERPDOC ---
Departure Disposition Decision Date: Sep 14, 2016 Disposition Decision Time: 16:54 (HERNANDEZVIOLETTA MCGOVERN BEAM CARRIER HAULER PUSHER) Disposition: 01 DISCHARGED HOME, SELF-CARE Impression Impression (HERNANDEZSHANIQUAGREGGVIOLETTAKEYLA Murillo APRN) Impression: Primary Impression: Migraine Qualified Codes: G43.909 - Migraine, unspecified, not intractable, without status migrainosus Severity: Moderate (GUI ORDONEZA N BEAM CARRIER HAULER PUSHER) Condition: Stable Seen By: Mid-level only (VIOLETTA ORDONEZ APRN) Referrals: IMANI ULRICH (Family) Patient Instructions: Migraine Headache (ED) Problems/Meds/Labs Reviewed?: Yes Medications reviewed and manag: Yes (VIOLETTA ORDONEZ BEAM CARRIER HAULER PUSHER) Additional Instructions: Go home and rest in a dark and quiet room. I do want you to follow up with your primary care provider this week with you have any further issues/concerns. Return to Er with any new issues/concerns. Follow up care ordered?: Yes Mental Status: Alert, Oriented (VIOLETTA ORDONEZ APRN) HPI - Headache General Chief Complaint: Headache Stated Complaint: MIGRAINE Time Seen by Provider: 16:00 Source: patient Exam Limitations: no limitations (HERNANDEZVIOLETTA MCGOVERN APRN) Time Seen by Provider: 16:00 (JESSICA WEBSTER MD) HPI - Headache Initial Comments She has a history of migraines. This morning she woke up at 3am with a migraine that has persisted since then. She has had nausea/vomiting with this as well. This is like her usual migraine that she gets. She denies any fever or chills or blurred vision. Was evaluated in the Er about a month ago for the same. Had stated at that time that Nubain is what works for her but has given herself Toradol injections in the past. Has followed up with her PCP and they are increasing her Topamax. She is scheduled to see a neurologist in November. Occurred At: home Onset: Gradual Duration: 6-12 hrs Severity/Quality: sharp Location: frontal, parietal (left) Prior Headaches/Recent Trauma: no recent headache/trauma Associated Symptoms: nausea/vomiting, DENIES: confusion, facial pain, fatigue, fever/chills, flushing, loss of consciousness, nasal congestion, nasal drainage , numbness in legs/feet, rash, seizures, sinus infection, stiff neck, vision changes, weakness Hx of Similar Symptoms: Yes (NOLD,VIOLETTA N BEAM CARRIER HAULER PUSHER) Allergies: Coded Allergies: diphenhydramine (Verified Allergy, Unknown, AGITATION, 09/14/16) meperidine (Verified Allergy, Unknown, SIGN FABRICATOR DEPRESSION, 09/14/16) sumatriptan (Verified Allergy, Unknown, ANXIETY, 09/14/16) dexamethasone (Verified Adverse Reaction, Unknown, VOMITING, 09/14/16) methylprednisolone (Verified Adverse Reaction, Unknown, VOMITING, 09/14/16) prednisone (Verified Adverse Reaction, Unknown, VOMITING, 09/14/16) Past History Past Medical History Neurological: migraines (NOLD,VIOLETTA N BEAM CARRIER HAULER PUSHER) Surgical History General: other Reproductive/: hysterectomy Joint: carpal tunnel, hip, knee (NOLD,VIOLETTA N BEAM CARRIER HAULER PUSHER) Social History Substance Use Type: does not use Alcohol Intake: none (NOLD,VIOLETTA N BEAM CARRIER HAULER PUSHER) Review of Systems Constitutional Constitutional: DENIES: chills, dizziness, fatigue, fever, weakness (NOLD, VIOLETTA N BEAM CARRIER HAULER PUSHER) Eyes Vision: DENIES: blurring, double vision (NOLD,VIOLETTA N BEAM CARRIER HAULER PUSHER) ENMT Ears: DENIES: drainage, pain Sinuses: DENIES: congestion, rhinorrhea Mouth/Throat: DENIES: painful swallowing, scratchy throat, sore throat (NOLD, VIOLETTA N BEAM CARRIER HAULER PUSHER) Cardiovascular Cardiac: DENIES: chest pain, orthopnea Rhythm/Rate: DENIES: irregular beat, palpitations (NOLD,VIOLETTA N BEAM CARRIER HAULER PUSHER) Pulmonary Respiratory: DENIES: cough, dyspnea, sputum, tachypnea (NOLD,VIOLETTA N BEAM CARRIER HAULER PUSHER) GI Upper Abdomen: DENIES: nausea, pain, vomiting Lower Abdomen: DENIES: constipation, diarrhea, pain (NOLD,VIOLETTA N BEAM CARRIER HAULER PUSHER) Integumentary Skin: DENIES: rash (NOLD,VIOLETTA N BEAM CARRIER HAULER PUSHER) Neurological General: DENIES: headache, numbness, tingling, weakness (NOLD,VIOLETTA N BEAM CARRIER HAULER PUSHER) Physical Exam General General Nourishment: well nourished, well developed, appears stated age, no acute distress, adult General Body Habitus: well groomed (NOLD,VIOLETTA N BEAM CARRIER HAULER PUSHER) Vitals and Pain First Documented Vital Signs Date Time Temp Pulse Resp B/P Pulse Ox O2 Delivery O2 Flow Rate FiO2 09/14/16 15:57 99.0 91 18 153/83 96 Room Air (JESSICA WEBSTER MD) Vitals and Pain Weight: Kilograms: 105.700 Height (feet): 5 Height (inches): 6.00 Triage Pain Scale: (VIOLETTA ORDONEZ APRN) RN VS reviewed by Provider: Yes (VIOLETTA ORDONEZ APRN) Normal Exams: Eyes: Pupils are PERRLA w/ EOMI, No scleral icterus, irritation, or foreign bodies noted ENMT: No facial trauma, nasal exudates, pharyngeal erythema, or exudates are noted Neck: Full range of motion, without adenopathy, JVD, bruits or thyromegaly Chest/Resp: Clear all estrada, with good airflow, and symmetry bilaterally CV: Regular rate and rhythm, without murmur or gallop, Pulses 2+ all extremities, capillary refill, <2 seconds all ext., no pedal edema noted Abdomen: Bowel sounds positive, soft, non-tender, non-distended, no hepatosplenomegaly, masses or bruits noted Lymphatic: No lymphadenopathy, or lymphedema noted Integumentary: No rashes, hives, or bruising noted Neurologic: Patient is alert, and oriented, cranial nerves, motor/sensory/ cerebellar, exams w/o gross deficits, to observation Psychiatric: Patient exhibits, appropriate attention, emotion and affect (VIOLETTA ORDONEZ APRN) Differential Diagnoses Considering: Headache, Headache - Migraine, Headache - Tension/Muscle, Hypertensive Emergency, Increased ICP, Sinusitis - Sphenoid, Sinusitis - Maxillary, Sinusitis - Frontal (VIOLETTA ORDONEZ APRN) Progress Results/Orders Orders Procedure Category Date Status Time Ketorolac (Toradol) PHA 09/14/16 Complete 16:15 Orphenadrine (Norflex) PHA 09/14/16 Complete 16:15 Promethazine PHA 09/14/16 Complete (Phenergan) 16:15 (JESSICA WEBSTER MD) Medications Current ED Medications Ketorolac Tromethamine (Toradol) 60 mg O ONCE IM Last administered on t 16:31; Start 09/14/16 at 16:15; Stop 09/14/16 at 16:16; Status DC Orphenadrine Citrate (Norflex) 60 mg O ONCE IM Last administered on 09/14/16 16:32; Start 09/14/16 at 16:15; Stop 09/14/16 at 16:16; Status DC Promethazine HCl (Phenergan) 25 mg O ONCE IM Last administered on 09/14/16 16 :32; Start 09/14/16 at 16:15; Stop 09/14/16 at 16:16; Status DC (JESSICA WEBSTER MD) Progress Progress Patient states that her pain is down to a 5-6/10 and is wanting to go home. Will dismiss her to home and have her rest. May continue with the OTC medications as needed for migraine. Follow up with PCP this week for reevaluation. (VIOLETTA ORDONEZ APRN) VIOLETTA ORDONEZ APRN Sep 14, 2016 16:13 JESSICA WEBSTER MD Sep 15, 2016 06:38
[2016-09-14] MEDS ORDERED: PROMETHAZINE 25 MG INJECTION IM ONE (16:15)
[2016-09-14] MEDS ORDERED: KETOROLAC 60mg/2ml INJECTION IM ONE (16:15)
[2016-09-14] MEDS ORDERED: ORPHENADRINE 60mg/2ml INJECTION IM ONE (16:15)
[2016-09-14 16:56] VITALS: BP 146/81; PULSE 85; RESP 18; O2SAT 94
== END 2016-09-14 16:56 | disposition home or self-care (01) ==
LOC: ED 15:55
DX: G43.909 Migraine, unspecified, not intractable, without status migrainosus (principal)
CPT/HCPCS: 96372; 99283; J1885; J2360; J2550

== ENCOUNTER 2016-10-01 15:42 | Emergency (ER) | payer MEDICARE, BC ==
[~2016-10-01] VITALS: Ht 167.6 cm; Wt 103.4 kg
[~2016-10-01 15:42] MED LIST changes: +DIAZ10TA4 PO; -GABA-354 PO; -LURA80TA PO; +NAPR220T61 PO; +TRAM50TA4 PO
[2016-10-01 15:46] VITALS: Ht 167.6 cm; Wt 103.4 kg
--- OUTSIDE RECORDS SUMMARY | 2016-10-01 15:46 | XMS REPORT ---
Author Author [facility] Organization Unknown Address Unknown Phone Unavailable Care Team Providers Care An/Sqq 89(V)15 Sonar System Journeyman Name Role Phone UNASSIGNED DOCTOR , DOCTOR PP [phone] Reason For Visit Reason for Visit from [...] 4:00 PM * Address # 1 : [phone] * #2 Office appointment: : Dr. Calvin Gonzales [facility] * #2 Date/Time : 08/29/2016 1:40 PM * Address # 2 : [phone] Procedures No relevant procedures performed. Immunizations No [...] the responsibility of the patient or patient community service representative to confirm the list of [...] oral daily for PKU * thyroid (pork) ([place] Thyroid) 60 mg Tablet, Ordered By: DARLING [...]
--- OUTSIDE RECORDS SUMMARY | 2016-10-01 15:47 | XMS REPORT ---
Author Author [place], [facility] Unknown Address Unknown Phone Unavailable Allergies, [...] the responsibility of the patient or patient pharmaceutical service representative to confirm the list of [...] care physcian 1 week after discharge from [facility]. Stopped medications* lithium carbonate 150 mg Capsule Directions: 1 capsule oral twice a day * thyroid (pork) ([place] Thyroid) 60 mg Tablet Directions: 1 tablet [...]
--- OUTSIDE RECORDS SUMMARY | 2016-10-01 15:47 | XMS REPORT | Continuity of Care Document ---
Author Author [facility] Organization [facility] Address Unknown Phone Unavailable Support Name Relationship Address Phone IMANI ULRICH Caregiver [address] [place] [address] Unavailable JESSICA WEBSTER MD Caregiver [address] [place] [address] [place] [address] Unavailable SLY ROMERO Next Of Kin [address] [place] [address] Insurance Providers Guarantor Brandee Romero Address [address] [place] [address] Email [email or web address] Payer Medicare Policy Number [id number] Subscriber's Name Brandee Romero Relationship 18 Self Effective Date 16 [facility] Policy Number [id number] Subscriber's Name NickBrandee Jayshree Relationship 18 Self Group Number [id number] Advance Directives Directive Response Recorded Date/Time Advanced Directives Type None 09/14/16 3:57pm Chief Complaint and Reason for Visit Chief Complaint Headache Reason for Visit Migraine Problems Past Problems Medical Problem Onset Date Migraine Unknown Migraine Unknown Medications Current Home Medications Medication Dose Units Route Directions Days Qty Instructions Start Date Clonazepam (Klonopin) 0.5 Mg Tablet 0.5 Mg Oral Bedtime 08/12/16 Diazepam 10 Mg Tablet 10 Mg Oral Every 6 Hours as needed for Prn Orders 09/14/16 Hydroxyzine Hcl 25 Mg Tablet 25 Mg Oral Bedtime as needed for Anxiety 08/12/16 Naproxen Sodium (Aleve) 220 Mg Tablet 440 Mg Oral Twice Daily With Meals as needed for Pain 09/14/16 Promethazine Hcl 25 Mg Tablet 25 Mg Oral As Needed 08/12/16 Thyroid,Pork ([place] Thyroid) 60 Mg Tablet 60 Mg Oral Three Times A Day 08/12/16 Topiramate (Topamax) 200 Mg Tablet 100 Mg Oral Bedtime 08/12/16 Tramadol Hcl 50 Mg Tablet 50 Mg Oral Q6h/0300,0900,1500,2100 as needed for Pain 09/14/16 Venlafaxine Hcl (Venlafaxine Hcl Er) 75 Mg Cap.er.24h 75 Mg Oral Daily 08/12/16 Vitamin B Complex 1 Each Tablet 2 Tab Oral Twice A Day as needed for Prn Orders 08/12/16 Social History Social History Problem Response Recorded Date/Time Onset Date Status Hx Alcohol Use No 09/14/2016 4:02pm Not Applicable Not Applicable Query Response Start Date Stop Date Smoking Status Never smoker Hospital Discharge Instructions No hospital discharge instructions. Plan of Care Discharge Date 09/14/16 4:56pm Disposition 01 DISCHARGED HOME, SELF-CARE Condition at Discharge Stable Instructions/Education Provided Migraine Headache (ED) Prescriptions See Medication Section Referrals IMANI ULRICH Address: [address] [place] [address] [phone] Additional Instructions/Education Go home and rest in a dark and quiet room. I do want you to follow up with your primary care provider this week with you have any further issues/concerns. Return to Er with any new issues/concerns. Care Plan and Goals Physician Care Plan Problem:Migraine Goal: Follow up with primary care provider Instructions: Take medications and follow care plan as discussed/written Functional Status No functional status results. 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 Active 09/14/16 Diphenhydramine Allergy Unknown AGITATION Active 09/14/16 Immunizations Query Response on File Recorded Date/Time Influenza Vaccine Hx no 09/14/16 4:02pm Vital Signs Acute Vital Signs Vital Response Date/Time Temperature (Fahrenheit) 99.0 deg F (96.8 - 99.1) 09/14/2016 3:57pm Temperature (Calculated Celsius) 37.83886 degrees C (36.0 - 37.3) 09/14/2016 3:57pm Pulse Rate (adult) 85 bpm (60 - 100) 09/14/2016 4:56pm Respiratory Rate 18 breaths/min (10 - 20) 09/14/2016 4:56pm O2 Sat by Pulse Oximetry 94 % (90 - 100) 09/14/2016 4:56pm Blood Pressure 146/81 mm Hg 09/14/2016 4:56pm Height (Feet) 5 feet 09/14/2016 3:57pm Height (Inches) 6.00 inches 09/14/2016 3:57pm Weight (Kilograms) 105.700 kg 09/14/2016 3:57pm Body Mass Index (BMI) 37.0 09/14/2016 3:57pm Results No known relevant diagnostic tests, laboratory data and/or discharge summary. Procedures Procedure Status Date Provider(s) Ther/proph/diag inj sc/im Completed 08/12/16 Ther/proph/diag inj sc/im Completed 08/12/16 Ther/proph/diag inj sc/im Completed 08/12/16 Emergency dept visit Completed 08/12/16 850192"INJECTION, KETOROLAC TROMETHAMINE, PER 15 MG" Completed 08/12/16675792"INJECTION, NALBUPHINE HYDROCHLORIDE, PER 10 MG" Completed 08/12/16"INJECTION, PROMETHAZINE HCL, UP TO 50 MG" Completed 08/12/16 Encounters Encounter Location Arrival/Admit Date Discharge/Depart Date Attending Provider Departed Emergency Room [facility] 09/14/16 3:55pm 09/14/16 4: 56pm JESSICA WEBSTER MD Departed Emergency Room [facility] 08/12/16 2:24pm 08/12/16 4: 31pm LASHA MOTA MD Recent Diagnosis
--- OUTSIDE RECORDS SUMMARY | 2016-10-01 15:48 | XMS REPORT | Continuity of Care Document ---
Author Author [facility] Organization [facility] Address Unknown Phone Unavailable Allergies Active Description Code Type Severity Reaction Onset Reported/Identified Relationship to Patient Clinical Status Yes BENADRYL [id number] Drug Allergy N/A N/A Yes DEMEROL [id number] Drug Allergy N/A N/A Yes SHELLFISH Drug [...] Admitting 346.90 MIGRAINE NOS W/O SM 05/24/2013 oY Ulloa MD Final 784.0 HEADACHE 09/03/2013 Rosalio [...] severe w/o psych features 07/27/2016 LIBBY STATON [id number] Suicidal ideations 07/27/2016 LIBBY STATON Z811 Family history of alcohol abuse and dependence 07/27/2016 LIBBY STATON Z818 Family history of other mental and behavioral disorders 07/27/2016 LIBBY STATON Z885 Allergy status to narcotic agent status Procedures Code Description Performed By Performed On H2011 [address]div[address] W [id number] Petit, Benjamen 12/21/2015 [id number] Petit, Benjamen 12/21/2015 H2011 Haroldo Daly H2011 [...] Status Pt. Type Provider Facility Loc./Unit Complaint [id number] 09/03/2013 11:23:00 2013 14:35:00 DIS Emergency Gloria ADAMS, Rosalio Hayden [facility] [id number] 05/24/2013 19:23:00 2013 21:00:00 DIS Emergency Artemio ADAMS, Yo [facility] FERM [id number] 02/02/2013 18:17:00 2012 20:00:00 DIS Inpatient Erma Valentine DO [facility] on Dat [place] [id number] 01/04/2013 20:07:00 Document Registration
--- NOTE | 2016-10-01 15:52 | NUR ---
PROVIDER Gabbie BECKER APRN AT BEDSIDE FOR EXAM.
[2016-10-01] MEDS ORDERED: TOPI100T43 PO (16:06)
--- NOTE | 2016-10-01 16:06 | ERPDOC ---
Departure Disposition Decision Date: October 01, 2016 Disposition Decision Time: 16:14 Disposition: 01 DISCHARGED HOME, SELF-CARE Impression Impression Impression: Primary Impression: Migraine headache Referrals: IMANI ULRICH (Family) Patient Instructions: Migraine Headache (ED) Problems/Meds/Labs Reviewed?: Yes Medications reviewed and manag: Yes Additional Instructions: 1. Follow up with your pcp, neurologist 2. Go home and rest. Follow up care ordered?: Yes Mental Status: Alert, Oriented HPI - Headache General Chief Complaint: Headache Stated Complaint: MIGRAINE Time Seen by Provider: 15:58 Source: patient Exam Limitations: no limitations HPI - Headache Initial Comments Brandee is a 46-year-old female who comes to the emergency department with chief complaint of migraine headache described as throbbing sensation behind both eyes indicating it is similar to her past migraines X 2 DAYS. History of migraines since age 16. Has aura described as floaters to right eye before headache started. Currently takes Topamax 50 mg by mouth daily for definitive care. Has appointment October [address] Addison as well as an appointment with [facility] in [place]. Reports being seen yesterday at immediate care center behind [facility] in [place] and was given Toradol, Norflex, and Phenergan for symptoms. She was also given a prescription for Fioricet which she last took this morning at 10 AM. This did not alleviate migraine. Patient continues to have nausea but has been able to keep food down all day. Arrives at the [facility] emergency room with a route delivery driver, states daughter and grandchildren are waiting for her in their vehicle. States "give me something to knock me out." Denies any recent prescriptions for narcotics within the last year, she admits only to a prescription for tramadol. States last ER visit for migraines was "a while ago. " When asked to further elaborate on what that meant, patient states she was seen within the last month in an emergency room. 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, 10/01/16) sumatriptan (Verified Allergy, Unknown, ANXIETY, 10/01/16) dexamethasone (Verified Adverse Reaction, Unknown, VOMITING, 10/01/16) diphenhydramine (Verified Adverse Reaction, Unknown, AGITATION, 10/01/16) methylprednisolone (Verified Adverse Reaction, Unknown, VOMITING, 10/01/16) prednisone (Verified Adverse Reaction, Unknown, VOMITING, 10/01/16) Past History Past Medical History Neurological: migraines Surgical History General: other Reproductive/: hysterectomy Joint: carpal tunnel, hip, knee Social History Smoking Status: Never smoker Substance Use Type: does not use Alcohol Intake: none Current Occupational Status: unemployed Review of Systems Constitutional Constitutional: DENIES: fever ENMT Sinuses: DENIES: congestion, rhinorrhea Cardiovascular Cardiac: DENIES: chest pain Pulmonary Respiratory: DENIES: cough GI Upper Abdomen: nausea, DENIES: vomiting Integumentary Skin: DENIES: rash Neurological General: headache, DENIES: numbness, weakness All other Systems All Other Systems: Reviewed and Negative Physical Exam General General Nourishment: well nourished, well developed, appears stated age, no acute distress Vitals and Pain First Documented Vital Signs Date Time Temp Pulse Resp B/P Pulse Ox O2 Delivery O2 Flow Rate FiO2 10/01/16 15:46 98.4 96 18 133/78 98 Room Air Weight: Kilograms: Height (feet): 5 Height (inches): 6.00 Triage Pain Scale: Eyes (brief) Eyes Brief: found: EOMI, PERRL, not found: scleral icterus ENMT (brief) ENMT Brief: FOUND: TM clear, TM good light reflex, ear canals clear, mucosa moist, normal dentition, NOT FOUND: nasal exudate, nasal swelling, pharnyx erythema Neck (brief) Neck: NOT FOUND: thyromegaly Respiratory (brief) Respiratory: FOUND: clear all estrada, equal bilaterally Cardiovascular (brief) Cardiac: FOUND: regular rate, regular rhythm Abdomen (brief) Abdominal Brief: FOUND: bowel normo active x4, soft, NOT FOUND: tender Lymphatic (brief) Lymphatic Brief: NOT FOUND: lymphedema Integumentary (brief) Integumentary Brief: FOUND: dry, pink, warm, NOT FOUND: rash Neurologic (brief) Neurological Brief: FOUND: CN w/o gross def to obs Psychiatric (brief) Psychiatric Brief: FOUND: alert, attentive, normal affect, oriented Differential Diagnoses Considering: Headache, Headache - Migraine Progress Results/Orders Orders Procedure Category Date Status Time Metoclopramide PHA 10/01/16 In Process (Reglan Inj) 16:15 Ketorolac (Toradol) PHA 10/01/16 In Process 16:15 Medications Current ED Medications Metoclopramide HCl (REGLAN Inj) 10 mg O ONCE IM ; Start 10/01/16 at 16:15; Stop 10/01/16 at 16:16 Ketorolac Tromethamine (Toradol) 60 mg O ONCE IM ; Start 10/01/16 at 16:15; Stop 10/01/16 at 16:16 Progress Progress 1613 - Review of [facility] shows multiple prescriptions in last six months for oxycodone, clonazepam, diazepam and hydrocodone. Patient was deceitful about receiving narcotic prescriptions. Today, will administer Reglan for nausea and Toradol for pain. She is advised to follow up with PCP, neurologist as necessary. MICHELLE BECKER APRN October 01, 2016 16:06
--- OUTSIDE RECORDS SUMMARY | 2016-10-01 16:11 | XMS REPORT ---
Author Author [facility], [facility] Unknown Address Unknown Phone Unavailable Allergies, Adverse Reactions, Alerts * Meperidine causes Severe Anaphylaxis. * Latex Allergy has not been assessed. * IV Contrast Allergy has not been assessed. * No Known Food Allergies. Problems * Anxiety* Status:Inactive. * Depression* Status:Active. * Difficulty Sleeping* Status:Inactive. * Hallucinations* Status:Active. Procedures No relevant procedures performed. Medication It is the responsibility of the patient or patient route sales representative to confirm the list of [...] care physcian 1 week after discharge from [facility]. Stopped medications* lithium carbonate 150 mg Capsule Directions: 1 capsule oral twice a day * thyroid (pork) ([place] Thyroid) 60 mg Tablet Directions: 1 tablet [...]
--- OUTSIDE RECORDS SUMMARY | 2016-10-01 16:11 | XMS REPORT ---
Author Author [employer], SYSTEM Organization Unknown Address Unknown Phone Unavailable Care Team Providers Care Traffic Rate Computer Name Role Phone UNASSIGNED DOCTOR , DOCTOR PP [phone] Reason For Visit Reason for Visit from [...] 4:00 PM * Address # 1 : [phone] * #2 Office appointment: : Dr. Calvin Gonzales [facility] * #2 Date/Time : 08/29/2016 1:40 PM * Address # 2 : [phone] Procedures No relevant procedures performed. Immunizations No [...] the responsibility of the patient or patient market survey representative to confirm the list of medications [...] oral daily for PKU * thyroid (pork) ([place] Thyroid) 60 mg Tablet, Ordered By: DARLING [...]
--- OUTSIDE RECORDS SUMMARY | 2016-10-01 16:13 | XMS REPORT | Continuity of Care Document ---
Author Author [facility] Organization [facility] Address Unknown Phone Unavailable Allergies Active Description Code Type Severity Reaction Onset Reported/Identified Relationship to Patient Clinical Status Yes BENADRYL [id number] Drug Allergy N/A N/A Yes DEMEROL [id number] Drug Allergy N/A N/A Yes SHELLFISH Drug [...] severe w/o psych features 07/27/2016 LIBBY STATON [id number] Suicidal ideations 07/27/2016 LIBBY STATON Z811 Family history of alcohol abuse and dependence 07/27/2016 LIBBY STATON Z818 Family history of other mental and behavioral disorders 07/27/2016 LIBBY STATON Z885 Allergy status to narcotic agent status Procedures Code Description Performed By Performed On H2011 [address] W [address] Petit, Benjamen 12/21/2015 [id number] Petit, Benjamen 12/21/2015 H2011 Haroldo Daly H2011 [...] Status Pt. Type Provider Facility Loc./Unit Complaint [id number] 09/03/2013 11:23:00 2013 14:35:00 DIS Emergency Gloria ADAMS, Rosalio Hayden [facility] [id number] 05/24/2013 19:23:00 2013 21:00:00 DIS Emergency Artemio ADAMS, Yo [facility] FERM [id number] 02/02/2013 18:17:00 2012 20:00:00 DIS Inpatient Erma Valentine DO [facility] on Dat [place] [id number] 01/04/2013 20:07:00 Document Registration
[2016-10-01] MEDS ORDERED: METOCLOPRAMIDE 10mg/2ml INJECTION IM ONE (16:15)
[2016-10-01] MEDS ORDERED: KETOROLAC 60mg/2ml INJECTION IM ONE (16:15)
[2016-10-01] MEDS ORDERED: BUTA1CAP51 PO (16:34)
[2016-10-01 16:38] VITALS: BP 116/68; PULSE 91; RESP 18; TEMP 98.4; O2SAT 97
--- NOTE | 2016-10-01 16:38 | NUR ---
DISCHARGE WRITTEN INSTRUCTIONS REVIEWED WITH PT. PT VERBALIZES UNDERSTANDING OF DI, DENIES QUESTIONS. REPORTS PAIN 8/10 AFTER MEDICATIONS ADM. PT AMBULATES OUT OF ER WITH STEADY GAIT AT THIS TIME.
== END 2016-10-01 16:38 | disposition home or self-care (01) ==
LOC: ED 15:42
DX: G43.109 Migraine with aura, not intractable, without status migrainosus (principal)
CPT/HCPCS: 96372; 99283; J1885; J2765